=== PATIENT | male | born 1985 | race Caucasian/White ===

== ENCOUNTER 2017-08-19 15:27 | Inpatient (IN) ==
[2017-08-19] MEDS ORDERED: ONDANSETRON 4 MG/2 ML VIAL IV ONE (15:47)
[2017-08-19] MEDS ORDERED: 0.9 % SODIUM CHLORIDE 1,000 ML IV ONE ×2 (15:47→18:26)
[2017-08-19] MEDS: HYDROmorphone 2 MG/ML VIAL IV PRN ×3 (15:55→18:51)
[2017-08-19 16:39] LABS: Basophils # (Auto) 0 K/mcL (0.0-0.3); Basophils % (Auto) 0.2 % (0.0-2.0); Eosinophils # (Auto) 0.1 K/mcL (0.0-0.7); Eosinophils % (Auto) 1.6 % (0.0-7.0); Granulocytes % (Auto) 77.8 % (38.0-78.0); Lymphocytes # (Auto) 1.2 K/mcL (1.5-4.8); Lymphocytes % (Auto) 13.6 % (15.5-49.0); Mean Cell Volume 93.7 fL (80.0-100.0); Mean Corpuscular HGB Conc 34.2 g/dL (31.0-36.0); Monocytes # (Auto) 0.6 K/mcL (0.1-0.9); Monocytes % (Auto) 6.8 % (1.0-12.0); Platelet Count 236 K/mcL (140-440); RBC 4.98 M/mcL (4.50-5.90); Red Cell Distribution Width 15.2 % (11.5-14.5)
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
[2017-08-19 16:58] LABS: Appearance,Urine HAZY; Bacteria,Urine 0 /hpf (0); Bilirubin,Urine NEG (NEG); Color,Urine YELLOW; Glucose,Urine (UA) NEGATIVE (NEG); Leukocyte Esterase,Urine NEG /uL (NEG); Mucus,Urine FEW /hpf (0); Protein,Urine 30 mg/dL (NEG); Specific Gravity,Urine 1.024 (1.000-1.035); Urine Blood 0.03 mg/dL (<0.03); Urine Hyaline Cast 1 /lpf (0-2); Urine RBC 1 /hpf (0-1); Urine Squamous Epithelial Cell 0 /hpf (0-4); Urine WBC 1 /hpf (0-4); Urobilinogen,Urine NEG (NEG)
[2017-08-19 17:00] LABS: ALT/SGPT 24 U/l (0-40); Albumin 5.1 gm/dL (3.2-5.2); Albumin/Globulin Ratio 1.9 (1.0-2.3); Alkaline Phosphatase 61 U/L (39-117); Amylase 489 U/L (28-100); Blood Urea Nitrogen 9 mg/dl (6-20)
[2017-08-19 17:08] LABS: Lipase 2581 U/L (7-60)
[2017-08-19] MEDS ORDERED: guaiFENesin/CODEINE 10 ML UDC PO PRN (19:03)
[2017-08-19] MEDS ORDERED: POTASSIUM CHLORIDE 40 MEQ in DEXTROSE 5% IN WATER 500 ML IV PRN (19:03)
[2017-08-19] MEDS ORDERED: ACETAMINOPHEN 325 MG TABLET PO PRN (19:03)
[2017-08-19] MEDS ORDERED: HYDROmorphone 2 MG/ML VIAL IV PRN (19:03)
[2017-08-19] MEDS ORDERED: traZODone HCL 50 MG TABLET PO PRN (19:03)
[2017-08-19] MEDS ORDERED: ONDANSETRON 4 MG/2 ML VIAL IV PRN (19:03)
[2017-08-19] MEDS ORDERED: ACETAMINOPHEN 1,000 MG/100 ML BOTTLE IV PRN (19:03)
--- NOTE | 2017-08-19 19:57 | Internal Med History&Physical ---
Medical - H&P: [facility] Patient information: Note initiated : 08/19/17 at 7:53 pm Service Date, if different from initiated Date: [] Patient: Lion Johnson 32 y/o M admitted on 08/19/17 for abdominal pain. Chief Complaint: [] Chief complaint: Abd pain History of present illness: Mr. Johnson is a 32 year old M recent episode of acute pancreatitis secondary to alcohol 2 months ago. patient was managed as outpatient conservatively. He was advised to abstain from alcohol however he continues to drink. He today comes in with 24 hour onset of worsening 10 out of 10 epigastric pain without radiation, main worse with food along with associated nausea. He reportedly had been consuming alcohol. He is accompanied by his . Initial workup in the ER was significant for elevated lipase over 1999. Abdominal ultrasound is pending. Hospitalist service was consulted in light of acute pancreatitis. Patient's initial [place] II and [place] score was low. hospitalist service was consulted for admission. At the time of evaluation patient is in moderate discomfort. He received 3 doses of Dilaudid. He is also received 2 L of crystalloid boluses. he denies substance abuse. Denies bloody stool or change in stool caliber. He denies fevers shaking chills abdominal distention yellow discoloration of skin headache photophobia or shortness of breath. review of systems 10 point review of system was performed and is negative except for discussed about Medical - H&P: PMH Medical history: hypertension asthma Recent pancreatitis History of seizure disorder Pertinent family history: hypertension Social history: former smoker active alcohol use History of methamphetamine use Have you smoked in the last 12 months: No Drug use: other (amphetamine) Alcohol use: heavy Medical - H&P: Meds Home Medications Medication Instructions Recorded Confirmed Type Phenytoin Sod [Dilantin] 100 mg PO TID 08/19/17 08/19/17 History Allergies Allergy/AdvReac Type Severity Reaction Status Date / Time NO KNOWN ALLERGIES Allergy Unknown NONE Uncoded 10/15/14 16:17 Medical - H&P: Exam - Constitutional Vitals: Temp Pulse Resp BP Pulse Ox 98.1 F 107 H 20 178/119 98 08/19/17 19:01 08/19/17 19:01 08/19/17 19:01 08/19/17 19:01 04/08/18 19:01 General appearance: average body habitus, moderate distress (abdominal pain) Exam: pupils symmetric oral cavity dry No eardischarge Head normocephalic Neck no lymphadenopathy S1 and S2 tachycardia Chest clear to auscultation Abdomen minimally distended, epigastric tenderness Lower extremity no cyanosis clubbing No joint swelling or erythema Skin no suspicious lesion Psych anxious but cooperative Neuro nonfocal Medical - H&P: Reslt - Labs CBC & Chem 7: 08/20/17 04:20 08/20/17 04:20 Labs: Short CBC 08/19/17 Range/Units 15:58 WBC 9.0 (4.5-11.0) K/mcL Hgb 16.0 (13.5-16.5) g/dL Hct 46.7 (41.0-55.0) % Plt Count 236 (140-440) K/mcL BMP 08/19/17 15:58 Sodium 139 Potassium 3.7 Chloride 94 L Carbon Dioxide 20 L BUN 9 Creatinine 0.7 Glucose 76 Calcium 9.5 Liver Function 08/19/17 Range/Units 15:58 Total Bilirubin 0.5 (0.0-1.0) mg/dL AST 37 (0-37) U/l ALT 24 (0-40) U/l Alkaline Phosphatase 61 (39-117) U/L Albumin 5.1 (3.2-5.2) gm/dL Urine 08/19/17 Range/Units 15:57 Urine Color Yellow Urine Appearance Hazy Urine pH 5.0 (5.0-9.0) Ur Specific [place] 1.024 (1.000-1.035) Urine Protein 30 A (NEG) mg/dL Urine Glucose (UA) Negative (NEG) mg/dL Medical - H&P: A/P (1) Acute alcoholic pancreatitis Current visit: Yes Status: Acute * Acute alcoholic pancreatitis-low [place] and [place] score on admit. Continue daily CRP trending. Continue conservative management with crystalloids and antiemetics/analgesics. Keep nothing by mouth/bowel rest * Abdominal pain managed on as needed opioids * Hypertension continue as needed hydralazine * History of seizure disorder continue IV phenytoin. Check phenytoin level * Full code plan * Conservative management as above * Phenytoin level * Pre-existing medical condition management as above Medical - H&P: Qual - VTE Deep Vein Thrombosis/Pulmonary Embolism Present on Admission: No
--- NOTE | 2017-08-19 20:02 | Ultrasound Report ---
CLINICAL INFORMATION: Upper abdominal pain COMPARISON: None. FINDINGS: Gallbladder and bile ducts are normal: CBD is 5 mm. The liver and pancreas are normal in size and echotexture. No free fluid IMPRESSION: Normal gallbladder, bile ducts, liver and pancreas Interpreted and Authenticated by: Seb Hopkins 08/19/17
[2017-08-19] MEDS ORDERED: PHENYTOIN SOD 100 MG/2 ML VIAL IV ONE (20:04)
[2017-08-19] MEDS: 0.9 % SODIUM CHLORIDE 1,000 ML IV SCH ×2 (20:10→20:11)
[2017-08-19] MEDS: SENNOSIDES/DOCUSATE SODIUM 1 TAB TABLET PO SCH (20:53)
[2017-08-19] MEDS: DOCUSATE SODIUM 100 MG CAPSULE PO SCH (20:53)
[2017-08-19] MEDS: 0.9 % SODIUM CHLORIDE 10 ML SYRINGE IV SCH (20:54)
[2017-08-19] MEDS ORDERED: SODIUM CHLORIDE 0.9% IV ONE (21:00)
[2017-08-19] MEDS ORDERED: FOSPHENYTOIN IV ONE (21:00)
[2017-08-19] MEDS: HEPARIN 5,000 UNIT/ML VIAL SQ SCH (21:18)
[2017-08-20] MEDS ORDERED: HYDROmorphone 2 MG/ML VIAL ONE ×3 (01:03→05:19)
[2017-08-20] MEDS: HYDROmorphone 2 MG/ML VIAL IV PRN ×10 (01:11→22:23)
[2017-08-20] MEDS: 0.9 % SODIUM CHLORIDE 1,000 ML IV SCH ×6 (01:30→22:27)
[2017-08-20] MEDS: 0.9 % SODIUM CHLORIDE 10 ML SYRINGE IV SCH ×3 (04:44→21:15)
[2017-08-20 05:44] LABS: Mean Cell Volume 93.9 fL (80.0-100.0); Mean Corpuscular HGB Conc 34.7 g/dL (31.0-36.0); Mean Corpuscular Hemoglobin 32.6 pg (26.0-34.0); Platelet Count 174 K/mcL (140-440); RBC 4.06 M/mcL (4.50-5.90); Red Cell Distribution Width 15.3 % (11.5-14.5)
[2017-08-20 06:26] LABS: ALT/SGPT 16 U/l (0-40); Albumin 3.8 gm/dL (3.2-5.2); Albumin/Globulin Ratio 1.7 (1.0-2.3); Alkaline Phosphatase 48 U/L (39-117); Bilirubin,Direct < 0.2 mg/dL (0.0-0.3); Blood Urea Nitrogen 6 mg/dl (6-20); C-Reactive Protein 1.9 mg/dl (0.0-0.8); Gamma Glutamyl Transpeptidase 158 U/L (8-61); Uric Acid 8.6 mg/dL (2.5-8.0)
[2017-08-20 06:33] LABS: Anisocytosis 1+ (NONE SEEN); Band Neutrophils % 9 % (0-10); Basophils % (Manual) 1 % (0-2); Eosinophils % (Manual) 1 % (0-7); Lymphocytes % 21 % (15-49); Monocytes % (Manual) 7 % (1-12); Platelet Estimate NORMAL (NORMAL); RBC Morphology ABNORMAL (NORMAL); Segmented Neutrophils % 57 % (38-78)
[2017-08-20] MEDS: PHENYTOIN SOD 100 MG/2 ML VIAL IV SCH ×3 (07:47→22:24)
[2017-08-20] MEDS: MAGNESIUM SULFATE 2 GM/50 ML BAG IV PRN (07:47)
[2017-08-20] MEDS: HEPARIN 5,000 UNIT/ML VIAL SQ SCH ×2 (09:05→21:14)
[2017-08-20] MEDS: MULTIVIT,THER IRON,CA,FA & MIN 1 TABLET PO SCH ×2 (09:05→10:22)
[2017-08-20] MEDS: THIAMINE 100 MG in 0.9 % SODIUM CHLORIDE 50 ML IV SCH (09:41)
[2017-08-20] MEDS: DOCUSATE SODIUM 100 MG CAPSULE PO SCH ×2 (10:17→21:15)
--- NOTE | 2017-08-20 10:42 | Internal Med Progress Note ---
Medical - PN: Subj Patient information: Note initiated : 08/20/17 at 10:40 am Service Date, if different from initiated Date: [] Patient: Lion Johnson 32 y/o M admitted on 08/19/17 for abdominal pain. Chief Complaint: [] Interval history: Mr. Johnson is a 32 year old M recent episode of acute pancreatitis secondary to alcohol 2 months ago. patient was managed as an outpatient conservatively. He was advised to abstain from alcohol however he continues to drink. He today comes in with 24 hour onset of worsening 10 out of 10 epigastric pain without radiation, main worse with food along with associated nausea. He reportedly had been consuming alcohol. He is affected with his . Initial workup in the ER was significant for elevated lipase over 1999. Abdominal ultrasound is pending. Hospitalist service was consulted in light of acute pancreatitis. Patient's initial [place] II and [place] score was low. hospitalist service was consulted for admission. At the time of evaluation patient is in moderate discomfort. He received 3 doses of Dilaudid. He is also received 2 L of crystalloid boluses. he denies substance abuse. Denies bloody stool or change in stool caliber. He denies fevers shaking chills abdominal distention yellow discoloration of skin headache photophobia or shortness of breath. 08/20-patient doing better. No overnight events except for persistent abdominal pain requiring IV opioids. On bowel rest with nothing by mouth. No concerns per staff. No fever chills nausea vomiting. continue crystalloids. - Constitutional Vitals: Vital Signs Temp Pulse Resp BP Pulse Ox 98.2 F 70 16 164/113 96 08/20/17 06:28 08/20/17 03:55 08/20/17 06:28 08/20/17 06:28 08/20/17 06:28 Period Temp Pulse Resp BP Sys/Hess Pulse Ox Last 24 Hr 97.4 F-98.2 F 67-107 16-20 152-178/87-123 94-100 Intake and Output 08/19/17 08/20/17 08/20/17 21:59 05:59 13:59 Intake Total 1000 / 1000 1000 / 1000 1000 / 1000 Output Total 950 / 950 350 / 350 Balance 1000 / 1000 50 / 50 650 / 650 Weight 185 lb 8 oz Intake & Output: Intake & Output 08/19/17 08/20/17 08/20/17 21:59 05:59 13:59 Intake Total 1000 / 1000 1000 / 1000 1000 / 1000 Output Total 950 / 950 350 / 350 Balance 1000 / 1000 50 / 50 650 / 650 Weight 185 lb 8 oz Intake: IV 1000 / 1000 1000 / 1000 1000 / 1000 Sodium Chloride 0.9% 1,000 ml @ 1000 / 1000 1000 / 1000 1000 / 1000 200 mls/hr IV .Q5H [facility] Rx#: [id number] Oral 0 / 0 Output: Void Amount 950 / 950 350 / 350 General appearance: cooperative, no acute distress Exam: Minimal anxiety nonlabored breathing Nondistended abdomen no pallor Medical - PN: Obj Da - Labs CBC & Chem 7: 08/20/17 04:20 08/20/17 04:20 Labs: Abnormal Lab Results 08/20/17 08/20/17 08/19/17 04:20 04:20 15:58 WBC 4.2 L RBC 4.06 L Hgb 13.2 L Hct 38.1 L RDW 15.3 H MPV 7.0 L Lymph % (Auto) Lymph # (Auto) Reactive Lymphocytes 4 H Anisocytosis 1+ A Chloride 94 L Carbon Dioxide 21 L 20 L Anion Gap 20.0 H 25.0 H Glucose 65 L Uric Acid 8.6 H Calcium 8.4 L Magnesium 1.5 L GGT 158 H C-Reactive Protein 1.9 H Triglycerides 202 H Amylase 489 H Lipase 2581 H Urine Protein Urine Ketones Urine Occult Blood 08/19/17 08/19/17 15:58 15:57 WBC RBC Hgb Hct RDW 15.2 H MPV 6.8 L Lymph % (Auto) 13.6 L Lymph # (Auto) 1.2 L Reactive Lymphocytes Anisocytosis Chloride Carbon Dioxide Anion Gap Glucose Uric Acid Calcium Magnesium GGT C-Reactive Protein Triglycerides Amylase Lipase Urine Protein 30 A Urine Ketones 20 A Urine Occult Blood 0.03 A Meds: Medications Acetaminophen (Tylenol) 650 mg PO Q4-6HP PRN PRN Reason: PAIN/FEVER > 101 Docusate Sodium (Colace) 100 mg PO BID [facility] Last Admin: 08/20/17 10:17 Dose: Not Given Guaifenesin/Codeine Phosphate (Robitussin Ac) 10 ml PO Q4HP PRN PRN Reason: Cough Heparin Sodium (Porcine) (Heparin) 5,000 unit SQ Q12 [facility] Last Admin: 08/20/17 09:05 Dose: 5,000 unit Hydralazine HCl (Apresoline) 0 mg IV Q4-6HP PRN PRN Reason: Hypertension Hydromorphone HCl (Dilaudid) 0.5 mg IV Q2HP PRN PRN Reason: PAIN LEVEL > 6 Last Admin: 08/20/17 09:41 Dose: 0.5 mg Potassium Chloride 40 meq/ (Dextrose) 520 mls @ 130 mls/hr IV UD PRN PRN Reason: K+ = or < 3.5 Magnesium Sulfate (Magnesium Sulfate) 2 gm in 50 mls @ 50 mls/hr IV UD PRN PRN Reason: MG = or < 1.7 Last Admin: 08/20/17 07:47 Dose: 50 mls/hr Sodium Chloride (Sodium Chloride 0.9%) 1,000 mls @ 0 mls/hr IV BOLUS REECE PRN Reason: Wide Open Last Admin: 08/19/17 20:11 Dose: Not Given Sodium Chloride (Sodium Chloride 0.9%) 1,000 mls @ 200 mls/hr IV .Q5H [facility] Last Admin: 08/20/17 09:41 Dose: 200 mls/hr Acetaminophen (Ofirmev) 1,000 mg in 100 mls @ 200 mls/hr IV Q6HP PRN PRN Reason: PAIN/FEVER > 101 Thiamine HCl 100 mg/ Sodium (Chloride) 51 mls @ 50 mls/hr IV DAILY [facility] Stop: 08/22/17 10:02 Last Admin: 08/20/17 09:41 Dose: 50 mls/hr Iron Carb/Multivit/[place]/Folic Acid (Multivitamin W/Minerals) 1 tab PO DAILY [facility] Last Admin: 08/20/17 10:22 Dose: Not Given Ondansetron HCl (Zofran) 4 mg IV Q4-6HP PRN PRN Reason: Nausea And Vomiting Phenytoin Sodium (Dilantin) 100 mg IV Q8 [facility] Last Admin: 08/20/17 07:47 Dose: 100 mg Senna/Docusate Sodium (Senna Plus Tablet) 1 tab PO HS [facility] Last Admin: 08/19/17 20:53 Dose: Not Given Sodium Chloride (Saline Flush) 10 ml IV Q8 [facility] Last Admin: 08/20/17 04:44 Dose: Not Given Medical - PN: A/P - Time Spent With Patient Total time spent is greater than 50% in coordination of care (as documented) at patient's floor/unit and/or counseling patient: 15 - 24 minutes (1) Acute alcoholic pancreatitis Status: Acute Assessment and plan: * Acute alcoholic pancreatitis-llipase over 1999. Persistent abdominal pain however improved since previous day. CRP uptrending.. Continue crystalloids and antiemetics/analgesics. Keep nothing by mouth/bowel rest * Abdominal pain managed on as needed opioids * Hypertension continue as needed hydralazine to keep systolic below 150 * History of seizure disorder continue IV phenytoin . Phenytoin level 3.4 * Full code plan * continue conservative management as above * IV phenytoin * Pre-existing medical condition management as above Current Visit: Yes Medical - PN: Qual - VTE Deep Vein Thrombosis/Pulmonary Embolism Present on Admission: No
[2017-08-20] MEDS: SENNOSIDES/DOCUSATE SODIUM 1 TAB TABLET PO SCH (21:15)
[2017-08-21] MEDS: HYDROmorphone 2 MG/ML VIAL IV PRN ×10 (00:34→23:46)
[2017-08-21] MEDS: PHENYTOIN SOD 100 MG/2 ML VIAL IV SCH ×2 (06:09→14:50)
[2017-08-21] MEDS: 0.9 % SODIUM CHLORIDE 10 ML SYRINGE IV SCH ×3 (06:09→22:16)
[2017-08-21 06:49] LABS: Mean Cell Volume 94.8 fL (80.0-100.0); Mean Corpuscular HGB Conc 34.3 g/dL (31.0-36.0); Mean Corpuscular Hemoglobin 32.5 pg (26.0-34.0); Platelet Count 170 K/mcL (140-440); RBC 4.23 M/mcL (4.50-5.90)
[2017-08-21 07:29] LABS: ALT/SGPT 15 U/l (0-40); Albumin 4.2 gm/dL (3.2-5.2); Albumin/Globulin Ratio 1.6 (1.0-2.3); Alkaline Phosphatase 50 U/L (39-117); Bilirubin,Direct < 0.2 mg/dL (0.0-0.3); Blood Urea Nitrogen 3 mg/dl (6-20); Gamma Glutamyl Transpeptidase 168 U/L (8-61); Uric Acid 8.9 mg/dL (2.5-8.0)
[2017-08-21 08:26] LABS: Band Neutrophils % 3 % (0-10); Eosinophils % (Manual) 4 % (0-7); Lymphocytes % 25 % (15-49); Monocytes % (Manual) 6 % (1-12); Platelet Estimate NORMAL (NORMAL); RBC Morphology NORMAL (NORMAL); Segmented Neutrophils % 62 % (38-78)
[2017-08-21] MEDS: MULTIVIT,THER IRON,CA,FA & MIN 1 TABLET PO SCH (08:54)
[2017-08-21] MEDS: DOCUSATE SODIUM 100 MG CAPSULE PO SCH ×2 (08:54→21:24)
[2017-08-21] MEDS: THIAMINE 100 MG in 0.9 % SODIUM CHLORIDE 50 ML IV SCH (08:58)
[2017-08-21] MEDS: HEPARIN 5,000 UNIT/ML VIAL SQ SCH ×2 (08:58→21:24)
[2017-08-21] MEDS: 0.9 % SODIUM CHLORIDE 1,000 ML IV SCH (12:55)
--- NOTE | 2017-08-21 14:09 | Internal Med Progress Note ---
Medical - PN: Subj Patient information: Note initiated : 08/21/17 at 2:05 pm Service Date, if different from initiated Date: [] Patient: Lion Johnson 32 y/o M admitted on 08/19/17 for Abdominal Pain/ Alcoholic Pancreatitis. Chief Complaint: [] Interval history: Mr. Johnson is a 32 year old M recent episode of acute pancreatitis secondary to alcohol 2 months ago. patient was managed as an outpatient conservatively. He was advised to abstain from alcohol however he continues to drink. He today comes in with 24 hour onset of worsening 10 out of 10 epigastric pain without radiation, main worse with food along with associated nausea. He reportedly had been consuming alcohol. He is affected with his . Initial workup in the ER was significant for elevated lipase over 1999. Abdominal ultrasound is pending. Hospitalist service was consulted in light of acute pancreatitis. Patient's initial Kirby II and Elba score was low. hospitalist service was consulted for admission. At the time of evaluation patient is in moderate discomfort. He received 3 doses of Dilaudid. He is also received 2 L of crystalloid boluses. he denies substance abuse. Denies bloody stool or change in stool caliber. He denies fevers shaking chills abdominal distention yellow discoloration of skin headache photophobia or shortness of breath. 08/20-patient doing better. No overnight events except for persistent abdominal pain requiring IV opioids. On bowel rest with nothing by mouth. No concerns per staff. No fever chills nausea vomiting. continue crystalloids. 08/21-abdominal pain remarkably improved. No overnight events. Intermittently required in low-dose opioids. Start clears and jellos. CRP elevated at 10. Continue trending. CT abdomen pending. Clinically improving. No overnight fever or chills or unstable hemodynamics - Constitutional Vitals: Vital Signs Temp Pulse Resp BP Pulse Ox 97.4 F 71 20 140/85 95 08/21/17 12:00 08/21/17 12:00 08/21/17 12:00 08/21/17 12:00 08/21/17 12:00 Period Temp Pulse Resp BP Sys/Hess Pulse Ox Last 24 Hr 96.9 F-98.1 F 62-71 16-22 140-169/85-123 95-98 Intake and Output 08/21/17 08/21/1718 05:59 13:59 21:59 Intake Total 0 / 0 1000 / 1000 Output Total 950 / 950 300 / 300 Balance -950 / -950 700 / 700 Intake & Output: Intake & Output 08/21/17 08/21/17 08/21/17 05:59 13:59 21:59 Intake Total 0 / 0 1000 / 1000 Output Total 950 / 950 300 / 300 Balance -950 / -950 700 / 700 Intake: IV 1000 / 1000 Sodium Chloride 0.9% 1,000 ml @ 1000 / 1000 75 mls/hr IV .[id number] [facility] Rx#: [id number] Oral 0 / 0 Output: Void Amount 950 / 950 300 / 300 Other: # Voids 1 General appearance: cooperative, no acute distress Exam: alert oriented nonlabored breathing Nondistended abdomen Medical - PN: Obj Da - Labs CBC & Chem 7: 08/21/17 05:08 08/21/17 05:08 Labs: Abnormal Lab Results 08/21/17 08/21/17 08/20/17 05:08 05:08 04:20 WBC 3.9 L RBC 4.23 L Hgb Hct 40.1 L RDW 15.0 H MPV 7.1 L Lymph % (Auto) Lymph # (Auto) Reactive Lymphocytes Anisocytosis Chloride Carbon Dioxide 21 L Anion Gap 22.0 H 20.0 H BUN 3 L Glucose 65 L Uric Acid 8.9 H 8.6 H Calcium 8.4 L Magnesium 1.5 L GGT 168 H 158 H C-Reactive Protein 10.0 H 1.9 H Triglycerides 210 H 202 H Amylase Lipase Urine Protein Urine Ketones Urine Occult Blood 08/20/17 08/19/17 08/19/17 04:20 15:58 15:58 WBC 4.2 L RBC 4.06 L Hgb 13.2 L Hct 38.1 L RDW 15.3 H 15.2 H MPV 7.0 L 6.8 L Lymph % (Auto) 13.6 L Lymph # (Auto) 1.2 L Reactive Lymphocytes 4 H Anisocytosis 1+ A Chloride 94 L Carbon Dioxide 20 L Anion Gap 25.0 H BUN Glucose Uric Acid Calcium Magnesium GGT C-Reactive Protein Triglycerides Amylase 489 H Lipase 2581 H Urine Protein Urine Ketones Urine Occult Blood 08/19/17 15:57 WBC RBC Hgb Hct RDW MPV Lymph % (Auto) Lymph # (Auto) Reactive Lymphocytes Anisocytosis Chloride Carbon Dioxide Anion Gap BUN Glucose Uric Acid Calcium Magnesium GGT C-Reactive Protein Triglycerides Amylase Lipase Urine Protein 30 A Urine Ketones 20 A Urine Occult Blood 0.03 A Meds: Medications Acetaminophen (Tylenol) 650 mg PO Q4-6HP PRN PRN Reason: PAIN/FEVER > 101 Docusate Sodium (Colace) 100 mg PO BID [facility] Last Admin: 08/21/17 08:54 Dose: Not Given Guaifenesin/Codeine Phosphate (Robitussin Ac) 10 ml PO Q4HP PRN PRN Reason: Cough Heparin Sodium (Porcine) (Heparin) 5,000 unit SQ Q12 [facility] Last Admin: 08/21/17 08:58 Dose: 5,000 unit Hydralazine HCl (Apresoline) 0 mg IV Q4-6HP PRN PRN Reason: Hypertension Hydromorphone HCl (Dilaudid) 0.5 mg IV Q2HP PRN PRN Reason: PAIN LEVEL > 6 Last Admin: 08/21/17 11:34 Dose: 0.5 mg Potassium Chloride 40 meq/ (Dextrose) 520 mls @ 130 mls/hr IV UD PRN PRN Reason: K+ = or < 3.5 Magnesium Sulfate (Magnesium Sulfate) 2 gm in 50 mls @ 50 mls/hr IV UD PRN PRN Reason: MG = or < 1.7 Last Infusion: 08/20/17 08:50 Dose: Infused Acetaminophen (Ofirmev) 1,000 mg in 100 mls @ 200 mls/hr IV Q6HP PRN PRN Reason: PAIN/FEVER > 101 Thiamine HCl 100 mg/ Sodium (Chloride) 51 mls @ 50 mls/hr IV DAILY [facility] Stop: 08/22/17 10:02 Last Admin: 08/21/17 08:58 Dose: 50 mls/hr Sodium Chloride (Sodium Chloride 0.9%) 1,000 mls @ 75 mls/hr IV .[id number] [facility] Last Admin: 08/21/17 12:55 Dose: 75 mls/hr Iron Carb/Multivit/[place]/Folic Acid (Multivitamin W/Minerals) 1 tab PO DAILY [facility] Last Admin: 08/21/17 08:54 Dose: Not Given Ondansetron HCl (Zofran) 4 mg IV Q4-6HP PRN PRN Reason: Nausea And Vomiting Phenytoin Sodium (Dilantin) 100 mg IV Q8 [facility] Last Admin: 08/21/17 06:09 Dose: 100 mg Senna/Docusate Sodium (Senna Plus Tablet) 1 tab PO HS [facility] Last Admin: 08/20/17 21:15 Dose: Not Given Sodium Chloride (Saline Flush) 10 ml IV Q8 [facility] Last Admin: 08/21/17 06:09 Dose: 10 ml Medical - PN: A/P - Time Spent With Patient Total time spent is greater than 50% in coordination of care (as documented) at patient's floor/unit and/or counseling patient: 15 - 24 minutes (1) Acute alcoholic pancreatitis Status: Acute Assessment and plan: * Acute alcoholic pancreatitis-clinically improving. Continue trend CRP. Continue crystalloids and antiemetics/analgesics. start clears * Abdominal pain managed on as needed opioids * Hypertension continue as needed hydralazine to keep systolic below 150 * History of seizure disorder-Switch to oral phenytoin * Full code plan * continue conservative management as above, * start clears * CT abdomen * start oral phenytoin * Pre-existing medical condition management as above Current Visit: Yes Medical - PN: Qual - VTE Deep Vein Thrombosis/Pulmonary Embolism Present on Admission: No
[2017-08-21] MEDS: PHENYTOIN SOD 100 MG CAPSULE PO SCH ×2 (14:32→21:24)
[2017-08-21] MEDS ORDERED: IOPAMIDOL 100 ML BOTTLE IV ONE (14:56)
--- NOTE | 2017-08-21 16:05 | Cat Scan Report ---
CLINICAL INFORMATION: Reason for Exam:acute pancreatitis, r/o pseudocyst,hemorrhage COMPARISON: None. TECHNIQUE: Following injection of intravenous contrast the patient was scanned during the portal venous phase from the diaphragm through the symphysis pubis. Sagittal and coronal reformats were created.. FINDINGS: Small hiatus hernia is present. Mild fatty infiltration is present throughout the liver. Liver is normal in size and there is no mass. The gallbladder and bile ducts are normal. Within the head of the pancreas the parenchyma is somewhat heterogeneous and there are several small macrocalcifications. Pancreatic head does not appear to be abnormally enlarged. The neck, body and tail of the pancreas are normal. There is no pseudocyst or hemorrhage in or adjacent to the pancreas. The duct is nondilated. The spleen is normal in size and homogeneous. The adrenals and kidneys are normal. The bowel gas pattern is normal. The appendix is noninflamed. Trace amount of ascites is present deep in the pelvis. Is no evidence of an abscess or adenopathy in the abdomen or pelvis. Urinary bladder is decompressed. Scheuermann's disease is present in the lower thoracic spine with loss in height of several vertebra, disc space narrowing and multiple Schmorl's nodes. IMPRESSION: Calcifications and heterogeneous parenchyma in the head of the pancreas. This may be a combination of acute and chronic pancreatitis. Trace amount of ascites which is probably related to pancreatitis. Scheuermann's disease in the thoracic spine Interpreted and Authenticated by: Bari Means 08/21/17
[2017-08-21] MEDS: SENNOSIDES/DOCUSATE SODIUM 1 TAB TABLET PO SCH (21:24)
[2017-08-21] MEDS ORDERED: traZODone HCL 50 MG TABLET PO PRN (22:18)
[2017-08-21] MEDS: hydrALAZINE 20 MG/ML VIAL IV PRN (23:47)
[2017-08-22] MEDS ORDERED: traZODone HCL 50 MG TABLET ONE (00:54)
[2017-08-22] MEDS: 0.9 % SODIUM CHLORIDE 1,000 ML IV SCH ×2 (00:57→11:37)
[2017-08-22] MEDS: HYDROmorphone 2 MG/ML VIAL IV PRN ×9 (04:12→22:31)
[2017-08-22] MEDS: 0.9 % SODIUM CHLORIDE 10 ML SYRINGE IV SCH ×3 (04:38→20:46)
[2017-08-22 06:55] LABS: Mean Cell Volume 94.6 fL (80.0-100.0); Mean Corpuscular HGB Conc 34.6 g/dL (31.0-36.0); Mean Corpuscular Hemoglobin 32.7 pg (26.0-34.0); Platelet Count 172 K/mcL (140-440); RBC 4.33 M/mcL (4.50-5.90); Red Cell Distribution Width 14.6 % (11.5-14.5)
[2017-08-22] MEDS: PHENYTOIN SOD 100 MG CAPSULE PO SCH ×3 (07:27→22:13)
[2017-08-22 07:28] LABS: ALT/SGPT 11 U/l (0-40); Albumin 4.3 gm/dL (3.2-5.2); Albumin/Globulin Ratio 1.7 (1.0-2.3); Alkaline Phosphatase 47 U/L (39-117); Bilirubin,Direct < 0.2 mg/dL (0.0-0.3); Blood Urea Nitrogen 4 mg/dl (6-20); C-Reactive Protein 8.2 mg/dl (0.0-0.8); Gamma Glutamyl Transpeptidase 174 U/L (8-61); Uric Acid 9.4 mg/dL (2.5-8.0)
[2017-08-22] MEDS: DOCUSATE SODIUM 100 MG CAPSULE PO SCH ×2 (08:58→20:43)
[2017-08-22 09:00] LABS: Band Neutrophils % 10 % (0-10); Eosinophils % (Manual) 4 % (0-7); Lymphocytes % 21 % (15-49); Monocytes % (Manual) 8 % (1-12); Platelet Estimate NORMAL (NORMAL); RBC Morphology NORMAL (NORMAL); Segmented Neutrophils % 56 % (38-78)
[2017-08-22] MEDS: MULTIVIT,THER IRON,CA,FA & MIN 1 TABLET PO SCH (09:18)
[2017-08-22] MEDS: MAGNESIUM SULFATE 2 GM/50 ML BAG IV PRN (09:18)
[2017-08-22] MEDS: HEPARIN 5,000 UNIT/ML VIAL SQ SCH ×2 (09:18→20:43)
[2017-08-22] MEDS: THIAMINE 100 MG in 0.9 % SODIUM CHLORIDE 50 ML IV SCH (10:33)
--- NOTE | 2017-08-22 13:19 | Internal Med Progress Note ---
Medical - PN: Subj Patient information: Note initiated : 08/22/17 at 1:09 pm Service Date, if different from initiated Date: [] Patient: Lion Johnson a 32 y/o M admitted on 08/19/17 for Abdominal Pain/ Alcoholic Pancreatitis. Chief Complaint: [] Interval history: Mr. Johnson is a 32 year old M recent episode of acute pancreatitis secondary to alcohol 2 months ago. patient was managed as an outpatient conservatively. He was advised to abstain from alcohol however he continues to drink. He today comes in with 24 hour onset of worsening 10 out of 10 epigastric pain without radiation, main worse with food along with associated nausea. He reportedly had been consuming alcohol. He is affected with his . Initial workup in the ER was significant for elevated lipase over 1999. Abdominal ultrasound is pending. Hospitalist service was consulted in light of acute pancreatitis. Patient's initial Bristol II and Elba score was low. hospitalist service was consulted for admission. At the time of evaluation patient is in moderate discomfort. He received 3 doses of Dilaudid. He is also received 2 L of crystalloid boluses. he denies substance abuse. Denies bloody stool or change in stool caliber. He denies fevers shaking chills abdominal distention yellow discoloration of skin headache photophobia or shortness of breath. 08/20-patient doing better. No overnight events except for persistent abdominal pain requiring IV opioids. On bowel rest with nothing by mouth. No concerns per staff. No fever chills nausea vomiting. continue crystalloids. 08/21-abdominal pain remarkably improved. No overnight events. Intermittently required in low-dose opioids. Start clears and jellos. CRP elevated at 10. Continue trending. CT abdomen pending. Clinically improving. No overnight fever or chills or unstable hemodynamics August 22-downtrending CRP however patient continues to experience abdominal pain. On sips and chips. CT abdomen shows calcification with signs of acute and chronic pancreatitis. No pseudocyst or hemorrhage. Attempting clears once abdominal pain improved. Counseling for alcohol cessation ongoing. Continue conservative management. Anticipate discharge in 48 hours once clinically improved. - Constitutional Vitals: Vital Signs Temp Pulse Resp BP Pulse Ox 98.2 F 62 14 143/93 92 08/22/17 07:13 08/22/17 07:13 08/22/17 07:13 08/22/17 07:13 08/22/17 07:13 Period Temp Pulse Resp BP Sys/Hess Pulse Ox Last 24 Hr 97.4 F-98.8 F 62-92 14-20 143-185/89-129 92-99 Intake and Output 08/21/17 08/22/17 08/22/17 21:59 05:59 13:59 Intake Total 100 / 100 1133 / 1133 Output Total 700 / 700 200 / 200 500 / 500 Balance -600 / -600 933 / 933 -500 / -500 Weight 180 lb Intake & Output: Intake & Output 08/21/17 08/22/17 08/22/17 21:59 05:59 13:59 Intake Total 100 / 100 1133 / 1133 Output Total 700 / 700 200 / 200 500 / 500 Balance -600 / -600 933 / 933 -500 / -500 Weight 180 lb Intake: IV 953 / 953 Sodium Chloride 0.9% 1,000 ml @ 902 / 902 75 mls/hr IV .[id number] [facility] Rx#: [id number] Vitamin B1 100 mg In Sodium 51 / 51 Chloride 0.9% 50 ml @ 50 mls/hr IV DAILY [facility] Rx#:[id number] Oral 100 / 100 180 / 180 Output: Void Amount 700 / 700 200 / 200 500 / 500 Other: Meal Jello cup Percent of Meal Consumed 50% Feeding Ability Independent Medical - PN: Obj Da - Labs CBC & Chem 7: 08/22/17 04:56 08/22/17 04:56 Labs: Abnormal Lab Results 08/22/17 08/22/17 08/21/17 04:56 04:56 05:08 WBC RBC 4.33 L Hgb Hct 40.9 L RDW 14.6 H MPV 7.3 L Lymph % (Auto) Lymph # (Auto) Reactive Lymphocytes Anisocytosis Chloride Carbon Dioxide 20 L Anion Gap 22.0 H 22.0 H BUN 4 L 3 L Glucose Uric Acid 9.4 H 8.9 H Calcium Magnesium GGT 174 H 168 H C-Reactive Protein 8.2 H 10.0 H Triglycerides 165 H 210 H Amylase Lipase Urine Protein Urine Ketones Urine Occult Blood 08/21/17 08/20/17 08/20/17 05:08 04:20 04:20 WBC 3.9 L 4.2 L RBC 4.23 L 4.06 L Hgb 13.2 L Hct 40.1 L 38.1 L RDW 15.0 H 15.3 H MPV 7.1 L 7.0 L Lymph % (Auto) Lymph # (Auto) Reactive Lymphocytes 4 H Anisocytosis 1+ A Chloride Carbon Dioxide 21 L Anion Gap 20.0 H BUN Glucose 65 L Uric Acid 8.6 H Calcium 8.4 L Magnesium 1.5 L GGT 158 H C-Reactive Protein 1.9 H Triglycerides 202 H Amylase Lipase Urine Protein Urine Ketones Urine Occult Blood 08/19/17 08/19/17 08/19/17 15:58 15:58 15:57 WBC RBC Hgb Hct RDW 15.2 H MPV 6.8 L Lymph % (Auto) 13.6 L Lymph # (Auto) 1.2 L Reactive Lymphocytes Anisocytosis Chloride 94 L Carbon Dioxide 20 L Anion Gap 25.0 H BUN Glucose Uric Acid Calcium Magnesium GGT C-Reactive Protein Triglycerides Amylase 489 H Lipase 2581 H Urine Protein 30 A Urine Ketones 20 A Urine Occult Blood 0.03 A Meds: Medications Acetaminophen (Tylenol) 650 mg PO Q4-6HP PRN PRN Reason: PAIN/FEVER > 101 Docusate Sodium (Colace) 100 mg PO BID [facility] Last Admin: 08/22/17 08:58 Dose: Not Given Guaifenesin/Codeine Phosphate (Robitussin Ac) 10 ml PO Q4HP PRN PRN Reason: Cough Heparin Sodium (Porcine) (Heparin) 5,000 unit SQ Q12 [facility] Last Admin: 08/22/17 09:18 Dose: 5,000 unit Hydralazine HCl (Apresoline) 0 mg IV Q4-6HP PRN PRN Reason: Hypertension Last Admin: 08/21/17 23:47 Dose: 10 mg Hydromorphone HCl (Dilaudid) 0.5 mg IV Q2HP PRN PRN Reason: PAIN LEVEL > 6 Last Admin: 08/22/17 11:32 Dose: 0.5 mg Potassium Chloride 40 meq/ (Dextrose) 520 mls @ 130 mls/hr IV UD PRN PRN Reason: K+ = or < 3.5 Magnesium Sulfate (Magnesium Sulfate) 2 gm in 50 mls @ 50 mls/hr IV UD PRN PRN Reason: MG = or < 1.7 Last Admin: 08/22/17 09:18 Dose: 50 mls/hr Acetaminophen (Ofirmev) 1,000 mg in 100 mls @ 200 mls/hr IV Q6HP PRN PRN Reason: PAIN/FEVER > 101 Sodium Chloride (Sodium Chloride 0.9%) 1,000 mls @ 75 mls/hr IV .[id number] [facility] Last Admin: 08/22/17 11:37 Dose: Not Given Iron Carb/Multivit/[place]/Folic Acid (Multivitamin W/Minerals) 1 tab PO DAILY [facility] Last Admin: 08/22/17 09:18 Dose: 1 tab Ondansetron HCl (Zofran) 4 mg IV Q4-6HP PRN PRN Reason: Nausea And Vomiting Phenytoin Sodium (Dilantin) 100 mg PO TID [facility] Last Admin: 08/22/17 07:27 Dose: 100 mg Senna/Docusate Sodium (Senna Plus Tablet) 1 tab PO HS [facility] Last Admin: 08/21/17 21:24 Dose: 1 tab Sodium Chloride (Saline Flush) 10 ml IV Q8 [facility] Last Admin: 08/22/17 04:38 Dose: Not Given Trazodone HCl (Desyrel) 50 mg PO HSP PRN PRN Reason: Insomnia Last Admin: 08/22/17 00:56 Dose: 50 mg Medical - PN: A/P - Time Spent With Patient Total time spent is greater than 50% in coordination of care (as documented) at patient's floor/unit and/or counseling patient: 15 - 24 minutes (1) Acute alcoholic pancreatitis Status: Acute Assessment and plan: * Acute alcoholic pancreatitis-clinically improving. CRP downtrending. Continue crystalloids and antiemetics/analgesics. continue clears and advance as tolerated * Abdominal pain continue as needed opioids * Hypertension continue as needed hydralazine to keep systolic below 150.start ENRIQUE inhibitor * History of seizure disorder-continue oral phenytoin * Full code plan * continue conservative management as above * continue care as * Add ENRIQUE inhibitor * Pre-existing medical condition management as above Current Visit: Yes Medical - PN: Qual - VTE Deep Vein Thrombosis/Pulmonary Embolism Present on Admission: No
[2017-08-22] MEDS ORDERED: LISINOPRIL 10 MG TABLET PO ONE (13:20)
[2017-08-22] MEDS: SENNOSIDES/DOCUSATE SODIUM 1 TAB TABLET PO SCH (20:43)
[2017-08-23] MEDS: HYDROmorphone 2 MG/ML VIAL IV PRN ×7 (00:44→20:07)
[2017-08-23] MEDS: 0.9 % SODIUM CHLORIDE 1,000 ML IV SCH ×2 (05:04→18:46)
[2017-08-23] MEDS: 0.9 % SODIUM CHLORIDE 10 ML SYRINGE IV SCH ×3 (05:35→21:09)
[2017-08-23 06:27] LABS: Mean Cell Volume 93.9 fL (80.0-100.0); Mean Corpuscular HGB Conc 34.5 g/dL (31.0-36.0); Mean Corpuscular Hemoglobin 32.4 pg (26.0-34.0); Platelet Count 168 K/mcL (140-440); RBC 4.03 M/mcL (4.50-5.90); Red Cell Distribution Width 14.7 % (11.5-14.5)
[2017-08-23 07:28] LABS: ALT/SGPT 11 U/l (0-40); Albumin 3.7 gm/dL (3.2-5.2); Albumin/Globulin Ratio 1.4 (1.0-2.3); Alkaline Phosphatase 43 U/L (39-117); Bilirubin,Direct < 0.2 mg/dL (0.0-0.3); Blood Urea Nitrogen 5 mg/dl (6-20); Gamma Glutamyl Transpeptidase 206 U/L (8-61); Uric Acid 9.1 mg/dL (2.5-8.0)
[2017-08-23] MEDS: PHENYTOIN SOD 100 MG CAPSULE PO SCH ×3 (07:32→21:08)
[2017-08-23 07:39] LABS: Band Neutrophils % 2 % (0-10); Eosinophils % (Manual) 1 % (0-7); Lymphocytes % 20 % (15-49); Monocytes % (Manual) 10 % (1-12); Platelet Estimate NORMAL (NORMAL); RBC Morphology NORMAL (NORMAL); Segmented Neutrophils % 65 % (38-78)
[2017-08-23] MEDS: LISINOPRIL 10 MG TABLET PO SCH (09:46)
[2017-08-23] MEDS: HEPARIN 5,000 UNIT/ML VIAL SQ SCH ×2 (09:46→21:09)
[2017-08-23] MEDS: MULTIVIT,THER IRON,CA,FA & MIN 1 TABLET PO SCH (09:46)
[2017-08-23] MEDS: DOCUSATE SODIUM 100 MG CAPSULE PO SCH ×2 (09:46→21:09)
[2017-08-23] MEDS ORDERED: LORazepam 2 MG/ML VIAL IV PRN (11:17)
--- NOTE | 2017-08-23 11:17 | Internal Med Progress Note ---
Medical - PN: Subj Patient information: Note initiated : 08/23/17 at 11:15 am Service Date, if different from initiated Date: [] Patient: Lion Johnson a 32 y/o M admitted on 08/19/17 for Abdominal Pain/ Alcoholic Pancreatitis. Chief Complaint: [] Interval history: Mr. Johnson is a 32 year old M recent episode of acute pancreatitis secondary to alcohol 2 months ago. patient was managed as an outpatient conservatively. He was advised to abstain from alcohol however he continues to drink. He today comes in with 24 hour onset of worsening 10 out of 10 epigastric pain without radiation, main worse with food along with associated nausea. He reportedly had been consuming alcohol. He is affected with his . Initial workup in the ER was significant for elevated lipase over 1999. Abdominal ultrasound is pending. Hospitalist service was consulted in light of acute pancreatitis. Patient's initial Nikolai II and Elba score was low. hospitalist service was consulted for admission. At the time of evaluation patient is in moderate discomfort. He received 3 doses of Dilaudid. He is also received 2 L of crystalloid boluses. he denies substance abuse. Denies bloody stool or change in stool caliber. He denies fevers shaking chills abdominal distention yellow discoloration of skin headache photophobia or shortness of breath. 08/20-patient doing better. No overnight events except for persistent abdominal pain requiring IV opioids. On bowel rest with nothing by mouth. No concerns per staff. No fever chills nausea vomiting. continue crystalloids. 08/21-abdominal pain remarkably improved. No overnight events. Intermittently required in low-dose opioids. Start clears and jellos. CRP elevated at 10. Continue trending. CT abdomen pending. Clinically improving. No overnight fever or chills or unstable hemodynamics August 22-downtrending CRP however patient continues to experience abdominal pain. On sips and chips. CT abdomen shows calcification with signs of acute and chronic pancreatitis. No pseudocyst or hemorrhage. Attempting clears once abdominal pain improved. Counseling for alcohol cessation ongoing. Continue conservative management. Anticipate discharge in 48 hours once clinically improved. August 23- patient clinically improving however appears quite anxious and disgruntled due to lowering dose of IV opioids. CRP downtrending. tolerating clears including Jell-O.normal LVEF/calcium/blood glucose and triglycerides. Low Elba score is at 48 hours.continue supportive management. Wean IV opioids. Patient appears restless and anxious.no hallucinations or signs of alcohol withdrawal this time. on as needed benzodiazepine for signs of alcohol withdrawal/counter psychomotor agitation - Constitutional Vitals: Vital Signs Temp Pulse Resp BP Pulse Ox 97.8 F 85 18 134/88 95 08/23/17 07:14 08/23/17 08:00 08/23/17 08:00 08/23/17 07:14 08/23/17 08:00 Period Temp Pulse Resp BP Sys/Hess Pulse Ox Last 24 Hr 97.4 F-98.5 F 58-86 14-22 119-165/74-113 95-98 Intake and Output 08/22/17 08/23/17 08/23/17 21:59 05:59 13:59 Intake Total 1280 / 1280 150 / 150 Output Total 350 / 350 250 / 250 Balance 930 / 930 -100 / -100 Weight 182 lb 8 oz Intake & Output: Intake & Output 08/22/17 08/23/17 08/23/17 21:59 05:59 13:59 Intake Total 1280 / 1280 150 / 150 Output Total 350 / 350 250 / 250 Balance 930 / 930 -100 / -100 Weight 182 lb 8 oz Intake: IV 1000 / 1000 Sodium Chloride 0.9% 1,000 ml @ 1000 / 1000 75 mls/hr IV .[id number] [facility] Rx#: [id number] Oral 280 / 280 150 / 150 Output: Void Amount 350 / 350 250 / 250 Other: # Voids 1 1 Exam: restless and anxious Nonlabored breathing Ambulating moving all 4 extremities Medical - PN: Obj Da - Labs CBC & Chem 7: 08/23/17 05:21 08/23/17 05:22 Labs: Abnormal Lab Results 08/23/17 08/23/17 08/23/17 05:22 05:22 05:21 WBC RBC 4.03 L Hgb 13.1 L Hct 37.8 L RDW 14.7 H MPV 7.0 L Carbon Dioxide 18 L Anion Gap 20.0 H BUN 5 L Creatinine 0.6 L Glucose 69 L Uric Acid 9.1 H GGT 206 H C-Reactive Protein 10.0 H Triglycerides 08/22/17 08/22/17 08/21/17 04:56 04:56 05:08 WBC RBC 4.33 L Hgb Hct 40.9 L RDW 14.6 H MPV 7.3 L Carbon Dioxide 20 L Anion Gap 22.0 H 22.0 H BUN 4 L 3 L Creatinine Glucose Uric Acid 9.4 H 8.9 H GGT 174 H 168 H C-Reactive Protein 8.2 H 10.0 H Triglycerides 165 H 210 H 08/21/17 05:08 WBC 3.9 L RBC 4.23 L Hgb Hct 40.1 L RDW 15.0 H MPV 7.1 L Carbon Dioxide Anion Gap BUN Creatinine Glucose Uric Acid GGT C-Reactive Protein Triglycerides Meds: Medications Acetaminophen (Tylenol) 650 mg PO Q4-6HP PRN PRN Reason: PAIN/FEVER > 101 Docusate Sodium (Colace) 100 mg PO BID [facility] Last Admin: 08/23/17 09:46 Dose: 100 mg Guaifenesin/Codeine Phosphate (Robitussin Ac) 10 ml PO Q4HP PRN PRN Reason: Cough Heparin Sodium (Porcine) (Heparin) 5,000 unit SQ Q12 [facility] Last Admin: 08/23/17 09:46 Dose: 5,000 unit Hydralazine HCl (Apresoline) 0 mg IV Q4-6HP PRN PRN Reason: Hypertension Last Admin: 08/21/17 23:47 Dose: 10 mg Hydromorphone HCl (Dilaudid) 0.5 mg IV Q4-6HP PRN PRN Reason: PAIN LEVEL > 6 Potassium Chloride 40 meq/ (Dextrose) 520 mls @ 130 mls/hr IV UD PRN PRN Reason: K+ = or < 3.5 Magnesium Sulfate (Magnesium Sulfate) 2 gm in 50 mls @ 50 mls/hr IV UD PRN PRN Reason: MG = or < 1.7 Last Infusion: 08/22/17 10:20 Dose: Infused Acetaminophen (Ofirmev) 1,000 mg in 100 mls @ 200 mls/hr IV Q6HP PRN PRN Reason: PAIN/FEVER > 101 Sodium Chloride (Sodium Chloride 0.9%) 1,000 mls @ 75 mls/hr IV .[id number] [facility] Last Admin: 08/23/17 05:04 Dose: 75 mls/hr Iron Carb/Multivit/[place]/Folic Acid (Multivitamin W/Minerals) 1 tab PO DAILY [facility] Last Admin: 08/23/17 09:46 Dose: 1 tab Lisinopril (Zestril) 10 mg PO DAILY [facility] Last Admin: 08/23/17 09:46 Dose: 10 mg Ondansetron HCl (Zofran) 4 mg IV Q4-6HP PRN PRN Reason: Nausea And Vomiting Phenytoin Sodium (Dilantin) 100 mg PO TID [facility] Last Admin: 08/23/17 07:32 Dose: 100 mg Senna/Docusate Sodium (Senna Plus Tablet) 1 tab PO HS [facility] Last Admin: 08/22/17 20:43 Dose: 1 tab Sodium Chloride (Saline Flush) 10 ml IV Q8 [facility] Last Admin: 08/23/17 05:35 Dose: Not Given Trazodone HCl (Desyrel) 50 mg PO HSP PRN PRN Reason: Insomnia Last Admin: 08/22/17 00:56 Dose: 50 mg Medical - PN: A/P - Time Spent With Patient Total time spent is greater than 50% in coordination of care (as documented) at patient's floor/unit and/or counseling patient: 15 - 24 minutes (1) Acute alcoholic pancreatitis Status: Acute Assessment and plan: * Acute alcoholic pancreatitis-clinically improving. CRP downtrending. Continue crystalloids and antiemetics/analgesics. continue clears and advance as tolerated * Abdominal pain - on 4 hourly as needed opioids * Hypertension- on ENRIQUE inhibitor. systolics around 130s * History of seizure disorder-continuing oral phenytoin * Full code plan * continue conservative management * Pre-existing medical condition management as above Current Visit: Yes Medical - PN: Qual - VTE Deep Vein Thrombosis/Pulmonary Embolism Present on Admission: No
[2017-08-23] MEDS ORDERED: BISACODYL 10 MG SUPP.RECT PR PRN (11:20)
[2017-08-23] MEDS ORDERED: POTASSIUM CHLORIDE 20 MEQ/10 ML VIAL IV ONE (20:00)
[2017-08-23] MEDS: SENNOSIDES/DOCUSATE SODIUM 1 TAB TABLET PO SCH (21:09)
[2017-08-24] MEDS: HYDROmorphone 2 MG/ML VIAL IV PRN ×3 (00:01→08:12)
[2017-08-24] MEDS: 0.9 % SODIUM CHLORIDE 1,000 ML IV SCH (03:25)
[2017-08-24] MEDS: 0.9 % SODIUM CHLORIDE 10 ML SYRINGE IV SCH (06:11)
[2017-08-24 06:38] LABS: Mean Cell Volume 94.9 fL (80.0-100.0); Mean Corpuscular HGB Conc 34.1 g/dL (31.0-36.0); Mean Corpuscular Hemoglobin 32.4 pg (26.0-34.0); Platelet Count 179 K/mcL (140-440); RBC 4.14 M/mcL (4.50-5.90); Red Cell Distribution Width 14.8 % (11.5-14.5)
[2017-08-24 06:39] LABS: ALT/SGPT 14 U/l (0-40); Albumin 3.8 gm/dL (3.2-5.2); Albumin/Globulin Ratio 1.4 (1.0-2.3); Alkaline Phosphatase 46 U/L (39-117); Bilirubin,Direct < 0.2 mg/dL (0.0-0.3); Blood Urea Nitrogen 4 mg/dl (6-20); Gamma Glutamyl Transpeptidase 215 U/L (8-61); Uric Acid 8.6 mg/dL (2.5-8.0)
[2017-08-24 07:01] LABS: Band Neutrophils % 4 % (0-10); Eosinophils % (Manual) 5 % (0-7); Lymphocytes % 23 % (15-49); Monocytes % (Manual) 13 % (1-12); Platelet Estimate NORMAL (NORMAL); RBC Morphology NORMAL (NORMAL); Segmented Neutrophils % 54 % (38-78)
[2017-08-24] MEDS: PHENYTOIN SOD 100 MG CAPSULE PO SCH (08:00)
[2017-08-24] MEDS: HEPARIN 5,000 UNIT/ML VIAL SQ SCH (08:13)
[2017-08-24] MEDS: MULTIVIT,THER IRON,CA,FA & MIN 1 TABLET PO SCH (08:13)
[2017-08-24] MEDS: LISINOPRIL 10 MG TABLET PO SCH (08:14)
[2017-08-24] MEDS: DOCUSATE SODIUM 100 MG CAPSULE PO SCH (08:14)
--- NOTE | 2017-08-24 09:25 | Discharge Summary ---
Medical - DS: Prov Patient information: Note initiated : 08/24/17 at 9:23 am Service Date, if different from initiated Date: [] Patient: Lion Johnson 32 y/o M admitted on 08/19/17 for Abdominal Pain/ Alcoholic Pancreatitis. Chief Complaint: [] Date of admission: 08/19/17 19:01 Discharge date: 08/24/17 Consults: 08/23/17 15:34 Consult to Physician [CONS] Routine Comment: Consulting Provider: Pablo Iqbal Reason For Exam: Physician to Consult Medical - DS: Meds - Discharge Medications Prescriptions: HYDROcodone/APAP 5/325MG [Antler 5-325Mg] 1 tab PO Q4HP PRN #20 tab PRN Reason: Pain Lisinopril [Zestril] 10 mg PO DAILY #30 tab Active and Home Medications: Home Medications Phenytoin Sod [Dilantin] 100 mg PO TID 08/19/17 [History Confirmed 08/19/17 Last Taken 08/19/17 14:00] HYDROcodone/APAP 5/325MG [Antler 5-325Mg] 1 tab PO Q4HP PRN #20 tab 08/24/17 [Rx Last Taken Unknown] Lisinopril [Zestril] 10 mg PO DAILY #30 tab 08/24/17 [Rx Last Taken Unknown] Medical - DS: Hosp Hospital course: DISCHARGE DIAGNOSIS * Acute alcoholic pancreatitis-clinically improving. patient is now pain-free. Tolerating full liquids and advancing to soft diet. Discharge later today. Follow-up PCP in 5 days. Refrain from alcohol to prevent future episodes of pancreatitis * Abdominal pain - clinically resolved * Hypertension- on ENRIQUE inhibitor. systolics around 120s * History of seizure disorder-continuing oral phenytoin At home dose. follow-up PCP [facility] Mr. Johnson is a 32 year old M recent episode of acute pancreatitis secondary to alcohol 2 months ago. patient was managed as an outpatient conservatively. He was advised to abstain from alcohol however he continues to drink. He today comes in with 24 hour onset of worsening 10 out of 10 epigastric pain without radiation, main worse with food along with associated nausea. He reportedly had been consuming alcohol. He is affected with his . Initial workup in the ER was significant for elevated lipase over 1999. Abdominal ultrasound is pending. Hospitalist service was consulted in light of acute pancreatitis. Patient's initial [place] II and Cleveland score was low. hospitalist service was consulted for admission.CRP 0.3 At the time of evaluation patient is in moderate discomfort. He received 3 doses of Dilaudid. He is also received 2 L of crystalloid boluses. he denies substance abuse. Denies bloody stool or change in stool caliber. He denies fevers shaking chills abdominal distention yellow discoloration of skin headache photophobia or shortness of breath. 08/20-patient doing better. No overnight events except for persistent abdominal pain requiring IV opioids. On bowel rest with nothing by mouth. No concerns per staff. No fever chills nausea vomiting. continue crystalloids.CRP 1.3 08/21-abdominal pain remarkably improved. No overnight events. Intermittently required in low-dose opioids. Start clears and jellos. CRP elevated at 10. Continue trending. CT abdomen pending. Clinically improving. No overnight fever or chills or unstable hemodynamics August 22-downtrending CRP at 8 however patient continues to experience abdominal pain. On sips and chips. CT abdomen shows calcification with signs of acute and chronic pancreatitis. No pseudocyst or hemorrhage. Attempting clears once abdominal pain improved. Counseling for alcohol cessation ongoing. Continue conservative management. Anticipate discharge in 48 hours once clinically improved. August 23- patient clinically improving however appears quite anxious and disgruntled due to lowering dose of IV opioids. CRP downtrending. tolerating clears including Jell-O.normal LVEF/calcium/blood glucose and triglycerides. Low Cleveland score is at 48 hours.continue supportive management. Wean IV opioids. Patient appears restless and anxious.no hallucinations or signs of alcohol withdrawal this time. on as needed benzodiazepine for signs of alcohol withdrawal/counter psychomotor agitation August 24-patient doing well. No overnight events. Tolerating clears and advancing to full liquids/soft diet. Discharge later today. blood pressure improved control on lisinopril . discharge on 5 mg lisinopril daily. Follow up PCP. Counseling performed for alcohol cessation in light of high risk recurrent episodes of pancreatitis Discharge diagnosis: . - Time Spent with Patient Total time spent providing and/or coordinating discharge services: Greater than 30 minutes Medical - DS: Exam - Constitutional Vitals: Vital Signs Temp Pulse Resp BP Pulse Ox 08/24/17 07:26 98.5 F 16 119/76 99 08/24/17 04:00 98.3 F 52 L 12 124/76 99 08/23/17 23:33 98.1 F 61 12 153/99 98 08/23/17 19:34 98.2 F 76 14 147/97 96 08/23/17 16:00 97.0 F 69 18 151/99 98 08/23/17 12:00 98.4 F 70 18 160/104 98 Intake and Output 08/23/17 08/24/17 08/24/17 21:59 05:59 13:59 Intake Total 1051 / 1051 770 / 770 Output Total 250 / 250 850 / 850 350 / 350 Balance 801 / 801 -80 / -80 -350 / -350 Intake: IV 1051 / 1051 520 / 520 Sodium Chloride 0.9% 1,000 ml @ 1000 / 1000 75 mls/hr IV .[id number] [facility] Rx#: [id number] Potassium Chloride 40 Meq In 520 / 520 Dextrose 5% in Water 500 ml @ 130 mls/hr IV UD PRN Rx#: [id number] Vitamin B1 100 mg In Sodium 51 / 51 Chloride 0.9% 50 ml @ 50 mls/hr IV DAILY [facility] Rx#:[id number] Oral 250 / 250 Output: Void Amount 250 / 250 850 / 850 350 / 350 Other: Meal cream of mushroom soup Percent of Meal Consumed 95% Feeding Ability Independent # Voids 1 Weight 180 lb 8 oz Medical - DS: Data Labs on day of discharge: Labs from last 24 hours 08/24/17 08/24/17 08/23/17 04:58 04:58 05:22 WBC 3.5 L RBC 4.14 L Hgb 13.4 L Hct 39.3 L MCV 94.9 MCH 32.4 MCHC 34.1 RDW 14.8 H Plt Count 179 MPV 7.2 L Total Counted 100 Seg Neutrophils % 54 Band Neutrophils % 4 Lymphocytes % 23 Monocytes % (Manual) 13 H Eosinophils % (Manual) 5 Reactive Lymphocytes 1 Platelet Estimate Normal RBC Morphology Normal Sodium 139 Potassium 3.7 Chloride 101 Carbon Dioxide 19 L Anion Gap 19.0 H BUN 4 L Creatinine 0.6 L GFR Calculation 135 Glucose 66 L Uric Acid 8.6 H Calcium 8.9 Phosphorus 2.8 Magnesium 1.9 Total Bilirubin 0.4 Direct Bilirubin < 0.2 GGT 215 H AST 21 ALT 14 Alkaline Phosphatase 46 Lactate Dehydrogenase 124 C-Reactive Protein 10.0 H Total Protein 6.6 Albumin 3.8 Globulin 2.8 Albumin/Globulin Ratio 1.4 Triglycerides 154 H Medical - DS: A/P - Patient/Caregiver Discharge Instructions Activity: increase activity as tolerated Diet: Low Fat Additional Instructions: continue low-fat diet Return to ER if worsening abdominal pain Absolutely no alcohol given recurrent alcoholic pancreatitis and risk of future life-threatening episodes Continue ENRIQUE inhibitor for hypertension as advised Follow-up primary care physician in 5 days-to schedule appointment prior to discharge with PCP Low-fat diet seizure precaution and seizure watch Prescriptions: HYDROcodone/APAP 5/325MG [Antler 5-325Mg] 1 tab PO Q4HP PRN #20 tab PRN Reason: Pain Lisinopril [Zestril] 10 mg PO DAILY #30 tab - Problem Maintenance (1) Acute alcoholic pancreatitis Status: Acute Qualifiers: Acute pancreatitis complication: no infection or necrosis Qualified Code(s) : K85.20 - Alcohol induced acute pancreatitis without necrosis or infection - Follow up Plan Disposition: Home, Self-Care Prognosis: Fair Rehab Potential: Fair I certify that the patient requires SNF services: Yes Overall status at discharge: patient is progressing back to baseline Medical - DS: Qual - VTE Deep Vein Thrombosis/Pulmonary Embolism Present on Admission: No
[2017-08-24] MEDS ORDERED: HYDROcodone/APAP 5/325MG TABLET PO PRN (09:26)
[2017-08-24] MEDS: hydrALAZINE 20 MG/ML VIAL IV PRN (14:18)
== END 2017-08-24 14:45 | disposition home or self-care (01) | DRG 440 ==
LOC: ED 15:27 → MEDSUR 19:01
PROVIDERS: ADMIT Internal Medicine; ATTEND Internal Medicine

== ENCOUNTER 2017-12-23 11:34 | Observation (INO) ==
[2017-12-23] MEDS ORDERED: IOPAMIDOL 100 ML BOTTLE IV ONE (11:35)
[2017-12-23] MEDS ORDERED: ONDANSETRON 4 MG/2 ML VIAL IV ONE (11:37)
[2017-12-23] MEDS ORDERED: PANTOPRAZOLE 40 MG VIAL IV ONE (12:03)
[2017-12-23] MEDS ORDERED: 0.9 % SODIUM CHLORIDE 1,000 ML IV ONE ×3 (12:04→15:39)
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
[2017-12-23 12:15] LABS: Basophils # (Auto) 0 K/mcL (0.0-0.3); Basophils % (Auto) 0.3 % (0.0-2.0); Eosinophils # (Auto) 0.1 K/mcL (0.0-0.7); Eosinophils % (Auto) 1.2 % (0.0-7.0); Granulocytes % (Auto) 32.6 % (38.0-78.0); Lymphocytes # (Auto) 2.8 K/mcL (1.5-4.8); Lymphocytes % (Auto) 59.6 % (15.5-49.0); Mean Cell Volume 91.1 fL (80.0-100.0); Mean Corpuscular HGB Conc 34.1 g/dL (31.0-36.0); Mean Corpuscular Hemoglobin 31.1 pg (26.0-34.0); Monocytes # (Auto) 0.3 K/mcL (0.1-0.9); Monocytes % (Auto) 6.3 % (1.0-12.0); Platelet Count 276 K/mcL (140-440); RBC 5.27 M/mcL (4.50-5.90); Red Cell Distribution Width 13.3 % (11.5-14.5)
[2017-12-23] MEDS ORDERED: PHENYTOIN SOD 100 MG CAPSULE PO ONE (12:30)
[2017-12-23 12:36] LABS: ALT/SGPT 54 U/l (0-40); Albumin 4.8 gm/dL (3.2-5.2); Albumin/Globulin Ratio 1.8 (1.0-2.3); Alkaline Phosphatase 69 U/L (39-117); Amylase 39 U/L (28-100); Blood Urea Nitrogen 11 mg/dl (6-20); Lipase 90 U/L (7-60)
[2017-12-23] MEDS ORDERED: HYDROmorphone 2 MG/ML VIAL IV ONE (12:52)
[2017-12-23 14:30] LABS: Appearance,Urine CLEAR; Bilirubin,Urine NEG (NEG); Color,Urine STRAW; Glucose,Urine (UA) NEGATIVE (NEG); Leukocyte Esterase,Urine NEG /uL (NEG); Protein,Urine NEG (NEG); Urine Blood NEG mg/dL (<0.03); Urobilinogen,Urine NEG (NEG)
[2017-12-23 14:38] LABS: Amphetamine Screen,Urine NONE DETECTED (NONDETECTED); Benzodiazepines Screen,Urine NONE DETECTED (NONDETECTED); Cocaine Screen,Urine NONE DETECTED (NONDETECTED); Opiate Screen,Urine NONE DETECTED (NONDETECTED); Oxycodone, Urine Screen NONE DETECTED (NONDETECTED)
[2017-12-23] MEDS: HYDROmorphone 2 MG/ML VIAL IV PRN ×2 (14:41→15:33)
[2017-12-23] MEDS ORDERED: PROMETHAZINE 25 MG/ML VIAL IV ONE (14:44)
--- NOTE | 2017-12-23 15:16 | XRay Report ---
HISTORY: Epigastric pain FINDINGS: The bowel gas pattern is normal. No free intra-abdominal air is present. There is no apparent mass or abnormal soft tissue calcification. The bones are normal. IMPRESSION: Normal abdomen Interpreted and Authenticated by: Bari Means 12/23/17
--- NOTE | 2017-12-23 16:23 | Cat Scan Report ---
CLINICAL INFORMATION: Abdominal pain, nausea, diarrhea and pancreatitis symptoms COMPARISON: None. TECHNIQUE: Following injection of intravenous contrast the patient was scanned during the portal venous phase from the diaphragm through the symphysis pubis. Sagittal and coronal reformats were created.. Radiation exposure was limited using dose reduction technology. FINDINGS: The liver is normal in size but there is mild generalized fatty infiltration. There is no radiographic evidence of cirrhosis and no mass is present. The gallbladder is normal with no stones or thickening of the wall. The intra and extrahepatic bile ducts are normal in caliber. The spleen is normal in size and homogeneous. No varices are identified and there is no ascites. Along the inferior margin the head of the pancreas there is a cluster of multiple small calcifications. There is low-level inflammation in pancreatic parenchyma in this region. There is also mild inflammation in the adjacent peripancreatic fat, adjacent to the head. The neck, body and tail of the pancreas are normal. The pancreatic duct is nondilated. No pseudocyst is present. The adrenals and kidneys are normal. There is no kidney stone or hydronephrosis. The bowel gas pattern is normal. The appendix is noninflamed. No abnormality is present within the pelvis. Patient has anterior wedging of the thoracic vertebra from T9 through T12. The adjacent disc spaces are moderately narrowed and there are multiple Schmorl's nodes. This is due to Scheuermann's disease. IMPRESSION: Acute superimposed upon chronic pancreatitis Mild fatty infiltration of the liver Dr. Goyal was called with results Interpreted and Authenticated by: Bari Means 12/23/17
--- NOTE | 2017-12-23 17:37 | Internal Med History&Physical ---
Medical - H&P: HPI Patient information: Note initiated : 12/23/17 at 5:20 pm Service Date, if different from initiated Date: [] Patient: Lion Johnson a 32 y/o M admitted on for Nausea, diarrhea, Abdominal pain. Chief Complaint: [] History of present illness: Mr. Johnson is a 32 year old M with h/o alcohol use, chr pancreatitis on Ct presents to the ER with complaints of nausea, vomiting and abdominal pain x 1 day The patient notes that he has not been feeling well for last few days, the pain initially started last sunday/ sunday, it was initially in his back (CT shows him having wedge fracture in that region), he thought its work related injury, the patient then took tylenol to see if this helped, he also notes he had been to a chiropractor to no avail, he then started to drink alcohol from last night, 2 large cans 12% beer. He also has been having abdominal pain from yesterday, nausea, vomiting, loose stools, he thought this was related to viral syndrome, but these symptoms continued to get worse and he eventually came to the hospital for further management. He notes he is not able to keep anything down at all, and even taking a sip of water for his seizure medications or blood pressure medication makes his symptoms worse. In the ER the patient was hemodynamically stable, he had no fever, rates his pain very severe not responding to IV pain meds, he also did not respond to IV ondansetron, Plan was to admit the patient, CT scan requested by me, [id number] acute on chr pancreatitis, liapse mildly elevated at 90, he always has elevated lipase it seems. He was last admitted in august for acute pancreatitis and was educated at length regarding abstinence from alcohol. Pt note he was sober for a month. The patient rates his pain in the ER around 8, he seems quite comfortable for his high pain ratings, which he attributes to his high pain threshold. Notes that if his pain score is 8, that would be 16 for someone else. I was informed later that the patient noted that he wanted go and hurt himself if the pain medication is not working. It seems that the ER provider is planning on having [facility] evaluate the patient before he is moved to the floor. The patient needs to be clear from etoh before [facility] can evaluate the patient and so they will be keeping the patient in the ER till [facility] has seen the patient and cleared him from suicidal watch. I will assume care once patient is on the floor/ cleared by [facility] - Constitutional Additional comments: CONSTITUTIONAL: No weight loss, fever, chills, some fatigue present HEENT: Eyes: No visual loss, blurred vision, double vision or yellow sclerae. Ears, Nose, Throat: No hearing loss, sneezing, congestion, runny nose or sore throat. SKIN: No rash or itching. CARDIOVASCULAR: No chest pain, chest pressure or chest discomfort. No palpitations or edema. RESPIRATORY: No shortness of breath, cough or sputum. GASTROINTESTINAL: nausea present, vomiting present, abodminal pain present, diarrhea present, no blood in stools no [place] GENITOURINARY: Denies Burning on urination. Blood in urine, or foul smelling urine NEUROLOGICAL: No headache, dizziness, syncope, paralysis, tremors, numbness or tingling in the extremities. No change in bowel or bladder control. MUSCULOSKELETAL: No muscle, present back pain, no joint pain or stiffness. HEMATOLOGIC: No bleeding or bruising. No enlarged nodes ENDOCRINOLOGIC: No reports of sweating, cold or heat intolerance. No polyuria or polydipsia. ALLERGIES: No hives, eczema or rhinitis. Skin: No rash, no jaundice, cyanosis or pallor. Medical - H&P: PMH Medical history: Seizure disorder Hypertension Pancreatitis h/o Supraventricular tachycardia (Acute) Family history: reviewed and not pertinent Medical - H&P: Meds Home Medications Medication Instructions Recorded Confirmed Type Phenytoin Sod [Dilantin] 100 mg PO TID 08/19/17 08/19/17 History HYDROcodone/APAP 5/325MG [[place] 1 tab PO Q4HP PRN #20 tab 08/24/17 Rx 5-325Mg] Lisinopril [Zestril] 5 mg PO DAILY #30 tab 08/24/17 Rx Benzocaine [Oral Anesthetic] 7 gm MM TID PRN #1 gel..gram. 09/19/17 Rx Etodolac 400 mg PO BID #30 tab 09/19/17 Rx oxyCODONE HCL [Oxycodone HCl] 5 mg PO Q4HP PRN #10 tab 11/08/17 Rx oxyCODONE HCL [Oxycodone HCl] 10 tab PO Q4HP PRN #12 tab 11/10/17 Rx Allergies Allergy/AdvReac Type Severity Reaction Status Date / Time No Known Drug Allergies Allergy Verified 11/10/17 23:05 Medical - H&P: Exam - Constitutional Vitals: Temp Pulse Resp BP Pulse Ox 98.6 F 79 18 122/84 98 12/23/17 11:55 12/23/17 17:09 12/23/17 11:34 12/23/17 17:09 12/23/17 17:09 Exam: GENERAL: The patient is a well-developed, well-nourished in no apparent distress. Is alert and oriented x3. VITAL SIGNS: Reviewed and as noted elsewhere. HEENT: Head is normocephalic and atraumatic. Extraocular muscles are intact. Pupils are equal, round, and reactive to light. Nares appeared normal. Mouth appears any without lesions. Mucous membranes are moist. NECK: Normal to inspection, Supple, No lymphadenopathy or thyromegaly. LUNGS: Air entry equal on both sides, no wheezing, crackles or rhonchi noted. No accessory muscles of respiration HEART: Regular rate and rhythm normal, S1 and S2 heard, no Gallop, S3 or Rub Noted, No Gross murmur heard. ABDOMEN: Soft, nontender, and nondistended. Positive bowel sounds. No hepatosplenomegaly was noted. EXTREMITIES: No cyanosis, clubbing, rash, lesions or edema. NEUROLOGIC: Cranial nerves II through XII are grossly intact. Motor and Sensory System Grossly Intact PSYCHIATRIC: Normal affect, Normal Mood. Appropriate Behavior. SKIN: No ulceration or wounds noted, No jaundice, No rash noted. Medical - H&P: Reslt - Labs CBC & Chem 7: 12/23/17 11:48 12/23/17 11:48 Labs: Short CBC 12/23/17 Range/Units 11:48 WBC 4.7 (4.5-11.0) K/mcL Hgb 16.4 (13.5-16.5) g/dL Hct 48.0 (41.0-55.0) % Plt Count 276 (140-440) K/mcL BMP 12/23/17 11:48 Sodium 141 Potassium 4.7 Chloride 103 Carbon Dioxide 25 BUN 11 Creatinine 0.9 Glucose 106 H Calcium 9.2 Liver Function 12/23/17 Range/Units 11:48 Total Bilirubin 0.4 (0.0-1.0) mg/dL AST 42 H (0-37) U/l ALT 54 H (0-40) U/l Alkaline Phosphatase 69 (39-117) U/L Albumin 4.8 (3.2-5.2) gm/dL Urine 12/23/17 Range/Units 13:50 Urine Color Straw Urine Appearance Clear Urine pH 8.0 (5.0-9.0) Ur Specific [place] 1.010 (1.000-1.035) Urine Protein Neg (NEG) mg/dL Urine Glucose (UA) Negative (NEG) mg/dL Medical - H&P: A/P - Narrative A/P Narrative: A/P Acute on chr pancreatitis Suicidal ideations? Hypertension Alcohol intoxication Alcohol abuse Seizure disorder Plan Admit to med surg as obs patient he is quite comfortable for someone who is describing such high pain scores, but patient seems quite offended when he felt that the ER doc treated him like someone seeking drugs. I explained to him that i will try a multi prong approach to manage his pain. IV tylenol, IV ketorolac as well as IV morphine q4hs for pain management He will be evaluated by Q for SI before he comes to the floor, IV ppi Swictch dilantin to IV IV hydralazine prn for htn CIWA protocol IV Thiamine, IV d5w with KCL to maintain hydration status. clear liquid diet trial tomorrow. educated again need for alcohol cessation and that his case is made worse with alcohol. DVT hep sq diet npo Full code. Social History - Tobacco smoking status: Former smoker
[2017-12-23] MEDS ORDERED: diphenhydrAMINE 50 MG/ML VIAL IV PRN (20:02)
[2017-12-23] MEDS ORDERED: ONDANSETRON 4 MG/2 ML VIAL IV PRN (20:02)
[2017-12-23] MEDS ORDERED: hydrALAZINE 20 MG/ML VIAL IV PRN (20:02)
[2017-12-23] MEDS ORDERED: LORazepam 2 MG/ML VIAL IV PRN (20:02)
[2017-12-23] MEDS ORDERED: NALOXONE HCL 0.4 MG/ML VIAL IV PRN (20:02)
[2017-12-23] MEDS ORDERED: THIAMINE 100 MG in 0.9 % SODIUM CHLORIDE 50 ML IV ONE (20:02)
[2017-12-23] MEDS ORDERED: PROMETHAZINE 25 MG/ML VIAL IV PRN (20:02)
[2017-12-23] MEDS ORDERED: PROMETHAZINE 25 MG/ML VIAL ONE (20:30)
[2017-12-23] MEDS: KETOROLAC 30 MG/ML VIAL IV SCH ×2 (20:50→23:55)
[2017-12-23] MEDS: DEXTROSE 5%-1/2NS W/40MEQ KCL 1,000 ML IV SCH (20:50)
[2017-12-23] MEDS: PANTOPRAZOLE 40 MG VIAL IV SCH (20:50)
[2017-12-23] MEDS: 0.9 % SODIUM CHLORIDE 10 ML SYRINGE IV SCH (20:52)
[2017-12-23] MEDS: HEPARIN 5,000 UNIT/ML VIAL SQ SCH (20:52)
[2017-12-23] MEDS: ACETAMINOPHEN 1,000 MG/100 ML BOTTLE IV SCH (20:52)
[2017-12-23] MEDS ORDERED: PHENYTOIN SOD 100 MG/2 ML VIAL IV SCH (21:00)
[2017-12-24] MEDS: 0.9 % SODIUM CHLORIDE 10 ML SYRINGE IV SCH ×3 (05:21→22:40)
[2017-12-24 05:41] LABS: Basophils # (Auto) 0 K/mcL (0.0-0.3); Basophils % (Auto) 0.3 % (0.0-2.0); Eosinophils # (Auto) 0.2 K/mcL (0.0-0.7); Eosinophils % (Auto) 3.1 % (0.0-7.0); Granulocytes % (Auto) 49.4 % (38.0-78.0); Lymphocytes # (Auto) 2.3 K/mcL (1.5-4.8); Lymphocytes % (Auto) 41.4 % (15.5-49.0); Mean Cell Volume 91.8 fL (80.0-100.0); Mean Corpuscular HGB Conc 34.1 g/dL (31.0-36.0); Mean Corpuscular Hemoglobin 31.3 pg (26.0-34.0); Monocytes # (Auto) 0.3 K/mcL (0.1-0.9); Monocytes % (Auto) 5.8 % (1.0-12.0); Platelet Count 215 K/mcL (140-440); RBC 4.63 M/mcL (4.50-5.90); Red Cell Distribution Width 13.1 % (11.5-14.5)
[2017-12-24] MEDS: KETOROLAC 30 MG/ML VIAL IV SCH ×3 (05:46→17:36)
[2017-12-24 05:56] LABS: ALT/SGPT 37 U/l (0-40); Albumin 4.1 gm/dL (3.2-5.2); Albumin/Globulin Ratio 1.9 (1.0-2.3); Alkaline Phosphatase 58 U/L (39-117); Bilirubin,Direct < 0.2 mg/dL (0.0-0.3); Blood Urea Nitrogen 12 mg/dl (6-20); Gamma Glutamyl Transpeptidase 339 U/L (8-61)
[2017-12-24] MEDS: ACETAMINOPHEN 1,000 MG/100 ML BOTTLE IV SCH ×3 (07:31→22:38)
[2017-12-24] MEDS: PANTOPRAZOLE 40 MG VIAL IV SCH ×2 (07:32→17:36)
[2017-12-24] MEDS: PHENYTOIN SOD 100 MG/2 ML VIAL IV SCH ×3 (08:23→22:39)
[2017-12-24] MEDS: THIAMINE 100 MG in 0.9 % SODIUM CHLORIDE 50 ML IV SCH (10:24)
[2017-12-24] MEDS: HEPARIN 5,000 UNIT/ML VIAL SQ SCH ×2 (10:25→22:39)
[2017-12-24] MEDS: DEXTROSE 5%-1/2NS W/40MEQ KCL 1,000 ML IV SCH ×2 (10:25→23:14)
--- NOTE | 2017-12-24 15:05 | Internal Med Progress Note ---
Medical - PN: Subj Patient information: Note initiated : 12/24/17 at 3:02 pm Service Date, if different from initiated Date: [] Patient: Lion Johnson a 32 y/o M admitted on 12/23/17 for Nausea, Diarrhea, Abdominal Pain/Pancreatitis. Chief Complaint: [] Interval history: Mr. Johnson is a 32 year old M with h/o alcohol use, chr pancreatitis on Ct presents to the ER with complaints of nausea, vomiting and abdominal pain x 1 day The patient notes that he has not been feeling well for last few days, the pain initially started last sunday/ sunday, it was initially in his back (CT shows him having wedge fracture in that region), he thought its work related injury, the patient then took tylenol to see if this helped, he also notes he had been to a chiropractor to no avail, he then started to drink alcohol from last night, 2 large cans 12% beer. He also has been having abdominal pain from yesterday, nausea, vomiting, loose stools, he thought this was related to viral syndrome, but these symptoms continued to get worse and he eventually came to the hospital for further management. He notes he is not able to keep anything down at all, and even taking a sip of water for his seizure medications or blood pressure medication makes his symptoms worse. In the ER the patient was hemodynamically stable, he had no fever, rates his pain very severe not responding to IV pain meds, he also did not respond to IV ondansetron, Plan was to admit the patient, CT scan requested by me, [id number] acute on chr pancreatitis, liapse mildly elevated at 90, he always has elevated lipase it seems. He was last admitted in august for acute pancreatitis and was educated at length regarding abstinence from alcohol. Pt note he was sober for a month. The patient rates his pain in the ER around 8, he seems quite comfortable for his high pain ratings, which he attributes to his high pain threshold. Notes that if his pain score is 8, that would be 16 for someone else. I was informed later that the patient noted that he wanted go and hurt himself if the pain medication is not working. It seems that the ER provider is planning on having [facility] evaluate the patient before he is moved to the floor. The patient needs to be clear from etoh before [facility] can evaluate the patient and so they will be keeping the patient in the ER till [facility] has seen the patient and cleared him from suicidal watch. I will assume care once patient is on the floor/ cleared by [facility] 12/24 pt seen examined, pain still there, but stable, lipase elevated to 120, clinically pt stable no fever, no nausea and or vomiting since yesterday advance diet today, to liquid Pertinent ROS: Denies headache, dizziness Denies chest pain, palpitations Denies cough or shortness of breath present abdominal pain, no nausea or vomiting. - Constitutional Vitals: Vital Signs Temp Pulse Resp BP Pulse Ox 98 F 56 L 16 132/97 98 12/24/17 11:33 12/24/17 03:39 12/24/17 11:33 12/24/17 11:33 12/24/17 11:33 Period Temp Pulse Resp BP Sys/Hess Pulse Ox Last 24 Hr 97.3 F-98.6 F 56-81 14-20 108-136/69-97 96-99 Intake and Output 12/24/17 12/24/17 12/24/17 05:59 13:59 21:59 Intake Total 1660 / 1660 Output Total 350 / 350 150 / 150 Balance -350 / -350 1510 / 1510 Intake & Output: Intake & Output 12/24/17 12/24/17 12/24/17 05:59 13:59 21:59 Intake Total 1660 / 1660 Output Total 350 / 350 150 / 150 Balance -350 / -350 1510 / 1510 Intake: IV 1000 / 1000 Dextrose 5%-1/2Ns W/40Meq KCl 1 1000 / 1000 ,000 ml @ 75 mls/hr IV .[id number] [facility] Rx#:[id number] Oral 660 / 660 Output: Void Amount 350 / 350 150 / 150 Other: Meal Lunch Percent of Meal Consumed 100% Exam: Constitutional; Afebrile, cooperative, alert, not in distress. Respiratory system: Air Entry equal on both sides, No crackles or wheezing, no rhonchi. CVS- Rate rhythm regular, S1,S2 heard, no gallop, no rub. Abdomen- Soft abdomen, no organomegaly,epigastric tenderness, no guarding or rigidity, [employer]- AOOx3, moving all extremities, no gross focal deficit noted. Medical - PN: Obj Da - Labs CBC & Chem 7: 12/24/17 04:03 12/24/17 04:02 Labs: Abnormal Lab Results 12/24/17 12/24/17 12/23/17 04:03 04:02 17:30 MPV Gran % Lymph % (Auto) Gran # Glucose POC Glucose Uric Acid 9.0 H POC WB Ioniz Calcium GGT 339 H AST ALT Triglycerides 447 H Lipase 127 H Ethyl Alcohol 0.079 H 12/23/17 12/23/17 12/23/17 11:48 11:48 11:48 MPV 7.3 L Gran % 32.6 L Lymph % (Auto) 59.6 H Gran # 1.5 L Glucose 106 H POC Glucose 106 H Uric Acid POC WB Ioniz Calcium 1.10 L GGT AST 42 H ALT 54 H Triglycerides Lipase 90 H Ethyl Alcohol 0.168 H Meds: Medications Diphenhydramine HCl (Benadryl) 12.5 mg IV Q4HP PRN PRN Reason: Allergic Symptoms Heparin Sodium (Porcine) (Heparin) 5,000 unit SQ Q12 [facility] Last Admin: 12/24/17 10:25 Dose: 5,000 unit Hydralazine HCl (Apresoline) 10 mg IV Q4HP PRN PRN Reason: Hypertension Potassium Chloride/Dextrose/Sod Cl (Dextrose 5%-1/2ns W/40meq Kcl) 1,000 mls @ 75 mls/hr IV .[id number] [facility] Last Admin: 12/24/17 10:25 Dose: 75 mls/hr Thiamine HCl 100 mg/ Sodium (Chloride) 51 mls @ 50 mls/hr IV DAILY [facility] Stop: 12/26/17 10:02 Last Admin: 12/24/17 10:24 Dose: 50 mls/hr Acetaminophen (Ofirmev) 1,000 mg in 100 mls @ 200 mls/hr IV Q8 [facility] Last Admin: 12/24/17 07:31 Dose: 200 mls/hr Ketorolac Tromethamine (Toradol) 30 mg IV Q6 [facility] Stop: 12/25/17 12:01 Last Admin: 12/24/17 12:00 Dose: 30 mg Lorazepam (Ativan) 0 mg IV Q4HP PRN; Protocol PRN Reason: Alcohol Withdrawal Morphine Sulfate (Morphine) 4 mg IV Q2HP PRN PRN Reason: PAIN LEVEL > 6 Last Admin: 12/24/17 14:12 Dose: 4 mg Naloxone HCl (Narcan) 0.1 mg IV Q2MIN PRN PRN Reason: Opiate Reversal Ondansetron HCl (Zofran) 4 mg IV Q6HP PRN PRN Reason: Nausea And Vomiting Pantoprazole Sodium (Protonix) 40 mg IV BIDAC [facility] Last Admin: 12/24/17 07:32 Dose: 40 mg Phenytoin Sodium (Dilantin) 100 mg IV Q8 [facility] Last Admin: 12/24/17 14:12 Dose: 100 mg Promethazine HCl (Phenergan) 12.5 mg IV Q6HP PRN PRN Reason: Nausea And Vomiting Sodium Chloride (Saline Flush) 10 ml IV Q8 [facility] Last Admin: 12/24/17 05:21 Dose: Not Given Medical - PN: A/P - Time Spent With Patient Total time spent is greater than 50% in coordination of care (as documented) at patient's floor/unit and/or counseling patient: - Narrative A/P Narrative: A/P Acute on chr pancreatitis Suicidal ideations? Hypertension Alcohol intoxication Alcohol abuse Seizure disorder Plan Continue IV morphine, IV tylenol, IV toradol advance diet no e/o withdrwal so far ciwa ongoing iv thiamine, IV prn bp meds IV dilantin if able to tolerate po can d/c in AM DVT hep sq diet npo Full code. Medical - PN: Qual - VTE Deep Vein Thrombosis/Pulmonary Embolism Present on Admission: No
--- NOTE | 2017-12-24 16:43 | Internal Med Progress Note ---
Medical - PN: Subj Patient information: Note initiated : 12/24/17 at 4:38 pm Service Date, if different from initiated Date: [] Patient: Lion Johnson 32 y/o M admitted on 12/23/17 for Nausea, Diarrhea, Abdominal Pain/Pancreatitis. Chief Complaint: [] pancreatitis - Constitutional Vitals: Vital Signs Temp Pulse Resp BP Pulse Ox 98 F 56 L 16 132/97 98 12/24/17 11:33 12/24/17 03:39 12/24/17 11:33 12/24/17 11:33 12/24/17 11:33 Period Temp Pulse Resp BP Sys/Hess Pulse Ox Last 24 Hr 97.3 F-98.6 F 56-81 14-20 108-136/69-97 96-99 Intake and Output 12/24/17 12/24/17 12/24/17 05:59 13:59 21:59 Intake Total 1811 / 1811 Output Total 350 / 350 150 / 150 150 / 150 Balance -350 / -350 1661 / 1661 -150 / -150 Intake & Output: Intake & Output 12/24/17 12/24/17 12/24/17 05:59 13:59 21:59 Intake Total 1811 / 1811 Output Total 350 / 350 150 / 150 150 / 150 Balance -350 / -350 1661 / 1661 -150 / -150 Intake: IV 1151 / 1151 Dextrose 5%-1/2Ns W/40Meq KCl 1 1000 / 1000 ,000 ml @ 75 mls/hr IV .[id number] [facility] Rx#:[id number] Vitamin B1 100 mg In Sodium 51 / 51 Chloride 0.9% 50 ml @ 50 mls/hr IV DAILY [facility] Rx#:[id number] Oral 660 / 660 Output: Void Amount 350 / 350 150 / 150 150 / 150 Other: Meal Lunch Lunch Percent of Meal Consumed 100% 100% Medical - PN: Obj Da - Labs CBC & Chem 7: 12/24/17 04:03 12/24/17 04:02 Labs: Abnormal Lab Results 12/24/17 12/24/17 12/23/17 04:03 04:02 17:30 MPV Gran % Lymph % (Auto) Gran # Glucose POC Glucose Uric Acid 9.0 H POC WB Ioniz Calcium GGT 339 H AST ALT Triglycerides 447 H Lipase 127 H Ethyl Alcohol 0.079 H 12/23/17 12/23/17 12/23/17 11:48 11:48 11:48 MPV 7.3 L Gran % 32.6 L Lymph % (Auto) 59.6 H Gran # 1.5 L Glucose 106 H POC Glucose 106 H Uric Acid POC WB Ioniz Calcium 1.10 L GGT AST 42 H ALT 54 H Triglycerides Lipase 90 H Ethyl Alcohol 0.168 H Meds: Medications Diphenhydramine HCl (Benadryl) 12.5 mg IV Q4HP PRN PRN Reason: Allergic Symptoms Heparin Sodium (Porcine) (Heparin) 5,000 unit SQ Q12 [facility] Last Admin: 12/24/17 10:25 Dose: 5,000 unit Hydralazine HCl (Apresoline) 10 mg IV Q4HP PRN PRN Reason: Hypertension Potassium Chloride/Dextrose/Sod Cl (Dextrose 5%-1/2ns W/40meq Kcl) 1,000 mls @ 75 mls/hr IV .[id number] [facility] Last Admin: 12/24/17 10:25 Dose: 75 mls/hr Thiamine HCl 100 mg/ Sodium (Chloride) 51 mls @ 50 mls/hr IV DAILY [facility] Stop: 12/26/17 10:02 Last Infusion: 12/24/17 11:25 Dose: Infused Acetaminophen (Ofirmev) 1,000 mg in 100 mls @ 200 mls/hr IV Q8 [facility] Last Admin: 12/24/17 15:16 Dose: 200 mls/hr Ketorolac Tromethamine (Toradol) 30 mg IV Q6 [facility] Stop: 12/25/17 12:01 Last Admin: 12/24/17 12:00 Dose: 30 mg Lorazepam (Ativan) 0 mg IV Q4HP PRN; Protocol PRN Reason: Alcohol Withdrawal Morphine Sulfate (Morphine) 4 mg IV Q2HP PRN PRN Reason: PAIN LEVEL > 6 Last Admin: 12/24/17 14:12 Dose: 4 mg Naloxone HCl (Narcan) 0.1 mg IV Q2MIN PRN PRN Reason: Opiate Reversal Ondansetron HCl (Zofran) 4 mg IV Q6HP PRN PRN Reason: Nausea And Vomiting Pantoprazole Sodium (Protonix) 40 mg IV BIDAC [facility] Last Admin: 12/24/17 07:32 Dose: 40 mg Phenytoin Sodium (Dilantin) 100 mg IV Q8 [facility] Last Admin: 12/24/17 14:12 Dose: 100 mg Promethazine HCl (Phenergan) 12.5 mg IV Q6HP PRN PRN Reason: Nausea And Vomiting Sodium Chloride (Saline Flush) 10 ml IV Q8 [facility] Last Admin: 12/24/17 15:19 Dose: Not Given Medical - PN: A/P - Time Spent With Patient Total time spent is greater than 50% in coordination of care (as documented) at patient's floor/unit and/or counseling patient: - Narrative A/P Narrative: A: *Acute on chr pancreatitis: *Etoh intoxication /Abuse: *HTN *Sz d/o: * P: -prn morphine/tylenol/toradol -advance diet as tolerated, currently full liquid -CIWA, vitamins, prn meds -IV dilantin - -ppx: heparin/home ppi Medical - PN: Qual - VTE Deep Vein Thrombosis/Pulmonary Embolism Present on Admission: No
[2017-12-25] MEDS: DEXTROSE 5%-1/2NS W/40MEQ KCL 1,000 ML IV SCH (00:48)
[2017-12-25] MEDS: KETOROLAC 30 MG/ML VIAL IV SCH ×3 (00:48→12:05)
[2017-12-25] MEDS: ACETAMINOPHEN 1,000 MG/100 ML BOTTLE IV SCH (05:52)
[2017-12-25] MEDS: PHENYTOIN SOD 100 MG/2 ML VIAL IV SCH (05:52)
[2017-12-25] MEDS: 0.9 % SODIUM CHLORIDE 10 ML SYRINGE IV SCH ×2 (05:53→10:54)
[2017-12-25 06:53] LABS: Basophils # (Auto) 0 K/mcL (0.0-0.3); Basophils % (Auto) 0.5 % (0.0-2.0); Eosinophils # (Auto) 0.3 K/mcL (0.0-0.7); Eosinophils % (Auto) 6.1 % (0.0-7.0); Lymphocytes # (Auto) 1.9 K/mcL (1.5-4.8); Lymphocytes % (Auto) 43.4 % (15.5-49.0); Mean Cell Volume 92.3 fL (80.0-100.0); Mean Corpuscular HGB Conc 34.7 g/dL (31.0-36.0); Mean Corpuscular Hemoglobin 32.1 pg (26.0-34.0); Monocytes # (Auto) 0.2 K/mcL (0.1-0.9); Platelet Count 184 K/mcL (140-440); RBC 4.35 M/mcL (4.50-5.90); Red Cell Distribution Width 12.9 % (11.5-14.5)
--- NOTE | 2017-12-25 07:19 | Internal Med Progress Note ---
Medical - PN: Subj Patient information: Note initiated : 12/25/17 at 7:15 am Service Date, if different from initiated Date: [] Patient: Lion Johnson a 32 y/o M admitted on 12/23/17 for Nausea, Diarrhea, Abdominal Pain/Pancreatitis. Chief Complaint: [] Interval history: Mr. Johnson is a 32 year old M with h/o alcohol use, chr pancreatitis on Ct presents to the ER with complaints of nausea, vomiting and abdominal pain x 1 day The patient notes that he has not been feeling well for last few days, the pain initially started last sunday/ sunday, it was initially in his back (CT shows him having wedge fracture in that region), he thought its work related injury, the patient then took tylenol to see if this helped, he also notes he had been to a chiropractor to no avail, he then started to drink alcohol from last night, 2 large cans 12% beer. He also has been having abdominal pain from yesterday, nausea, vomiting, loose stools, he thought this was related to viral syndrome, but these symptoms continued to get worse and he eventually came to the hospital for further management. He notes he is not able to keep anything down at all, and even taking a sip of water for his seizure medications or blood pressure medication makes his symptoms worse. In the ER the patient was hemodynamically stable, he had no fever, rates his pain very severe not responding to IV pain meds, he also did not respond to IV ondansetron, Plan was to admit the patient, CT scan requested by me, [id number] acute on chr pancreatitis, liapse mildly elevated at 90, he always has elevated lipase it seems. He was last admitted in august for acute pancreatitis and was educated at length regarding abstinence from alcohol. Pt note he was sober for a month. The patient rates his pain in the ER around 8, he seems quite comfortable for his high pain ratings, which he attributes to his high pain threshold. Notes that if his pain score is 8, that would be 16 for someone else. I was informed later that the patient noted that he wanted go and hurt himself if the pain medication is not working. It seems that the ER provider is planning on having [facility] evaluate the patient before he is moved to the floor. The patient needs to be clear from etoh before [facility] can evaluate the patient and so they will be keeping the patient in the ER till [facility] has seen the patient and cleared him from suicidal watch. I will assume care once patient is on the floor/ cleared by [facility] 12/24 pt seen examined, pain still there, but stable, lipase elevated to 120, clinically pt stable no fever, no nausea and or vomiting since yesterday advance diet today, to liquid 12/25 tolerating full liquid diet since yesterday morning. - Constitutional Vitals: Vital Signs Temp Pulse Resp BP Pulse Ox 98.5 F 77 18 144/89 98 12/25/17 03:34 12/25/17 04:05 12/25/17 03:34 12/25/17 04:05 12/25/17 03:34 Period Temp Pulse Resp BP Sys/Hess Pulse Ox Last 24 Hr 97.7 F-98.5 F 55-77 16-18 122-148/81-105 91-98 Intake and Output 12/24/17 12/25/17 12/25/17 21:59 05:59 13:59 Intake Total 720 / 720 1700 / 1700 Output Total 250 / 250 2225 / 2225 Balance 470 / 470 -525 / -525 Weight 171 lb 8 oz Intake & Output: Intake & Output 12/24/17 12/25/17 12/25/17 21:59 05:59 13:59 Intake Total 720 / 720 1700 / 1700 Output Total 250 / 250 2225 / 2225 Balance 470 / 470 -525 / -525 Weight 171 lb 8 oz Intake: IV 100 / 100 1100 / 1100 Dextrose 5%-1/2Ns W/40Meq KCl 1 1000 / 1000 ,000 ml @ 75 mls/hr IV .[id number] [facility] Rx#:[id number] Oral 620 / 620 600 / 600 Output: Void Amount 250 / 250 2225 / 2225 Other: Meal Lunch Percent of Meal Consumed 100% Urine Appearance Clear Urine Color Bright Yellow Medical - PN: Obj Da - Labs CBC & Chem 7: 12/25/17 05:02 12/25/17 05:02 Labs: Abnormal Lab Results 12/25/17 12/24/17 12/24/17 05:02 04:03 04:02 WBC 4.3 L RBC 4.35 L Hct 40.1 L MPV Gran % Lymph % (Auto) Gran # Glucose POC Glucose Uric Acid 9.0 H POC WB Ioniz Calcium GGT 339 H AST ALT Triglycerides 447 H Lipase 127 H Ethyl Alcohol 12/23/17 12/23/17 12/23/17 17:30 11:48 11:48 WBC RBC Hct MPV Gran % Lymph % (Auto) Gran # Glucose 106 H POC Glucose 106 H Uric Acid POC WB Ioniz Calcium 1.10 L GGT AST 42 H ALT 54 H Triglycerides Lipase 90 H Ethyl Alcohol 0.079 H 0.168 H 12/23/17 11:48 WBC RBC Hct MPV 7.3 L Gran % 32.6 L Lymph % (Auto) 59.6 H Gran # 1.5 L Glucose POC Glucose Uric Acid POC WB Ioniz Calcium GGT AST ALT Triglycerides Lipase Ethyl Alcohol Meds: Medications Diphenhydramine HCl (Benadryl) 12.5 mg IV Q4HP PRN PRN Reason: Allergic Symptoms Heparin Sodium (Porcine) (Heparin) 5,000 unit SQ Q12 [facility] Last Admin: 12/24/17 22:39 Dose: 5,000 unit Hydralazine HCl (Apresoline) 10 mg IV Q4HP PRN PRN Reason: Hypertension Last Admin: 12/25/17 03:39 Dose: 10 mg Potassium Chloride/Dextrose/Sod Cl (Dextrose 5%-1/2ns W/40meq Kcl) 1,000 mls @ 75 mls/hr IV .[id number] [facility] Last Admin: 12/25/17 00:48 Dose: 75 mls/hr Thiamine HCl 100 mg/ Sodium (Chloride) 51 mls @ 50 mls/hr IV DAILY [facility] Stop: 12/26/17 10:02 Last Infusion: 12/24/17 11:25 Dose: Infused Acetaminophen (Ofirmev) 1,000 mg in 100 mls @ 200 mls/hr IV Q8 [facility] Last Admin: 12/25/17 05:52 Dose: 200 mls/hr Ketorolac Tromethamine (Toradol) 30 mg IV Q6 [facility] Stop: 12/25/17 12:01 Last Admin: 12/25/17 05:52 Dose: 30 mg Lorazepam (Ativan) 0 mg IV Q4HP PRN; Protocol PRN Reason: Alcohol Withdrawal Morphine Sulfate (Morphine) 4 mg IV Q2HP PRN PRN Reason: PAIN LEVEL > 6 Last Admin: 12/25/17 07:01 Dose: 4 mg Naloxone HCl (Narcan) 0.1 mg IV Q2MIN PRN PRN Reason: Opiate Reversal Ondansetron HCl (Zofran) 4 mg IV Q6HP PRN PRN Reason: Nausea And Vomiting Pantoprazole Sodium (Protonix) 40 mg IV BIDAC [facility] Last Admin: 12/24/17 17:36 Dose: 40 mg Phenytoin Sodium (Dilantin) 100 mg IV Q8 [facility] Last Admin: 12/25/17 05:52 Dose: 100 mg Promethazine HCl (Phenergan) 12.5 mg IV Q6HP PRN PRN Reason: Nausea And Vomiting Sodium Chloride (Saline Flush) 10 ml IV Q8 [facility] Last Admin: 12/25/17 05:53 Dose: Not Given Medical - PN: A/P - Time Spent With Patient Total time spent is greater than 50% in coordination of care (as documented) at patient's floor/unit and/or counseling patient: - Narrative A/P Narrative: A: *Acute on chr pancreatitis: *Etoh intoxication /Abuse: *HTN *Sz d/o: * P: -prn morphine/tylenol/toradol -advance diet as tolerated, currently full liquid -CIWA, vitamins, prn meds -IV dilantin - -ppx: heparin/home ppi Medical - PN: Qual - VTE Deep Vein Thrombosis/Pulmonary Embolism Present on Admission: No
[2017-12-25 07:28] LABS: ALT/SGPT 34 U/l (0-40); Albumin 3.8 gm/dL (3.2-5.2); Albumin/Globulin Ratio 1.6 (1.0-2.3); Alkaline Phosphatase 74 U/L (39-117); Bilirubin,Direct < 0.2 mg/dL (0.0-0.3); Blood Urea Nitrogen 9 mg/dl (6-20); Gamma Glutamyl Transpeptidase 410 U/L (8-61); Uric Acid 8.1 mg/dL (2.5-8.0)
[2017-12-25] MEDS: PANTOPRAZOLE 40 MG VIAL IV SCH (09:06)
[2017-12-25] MEDS: THIAMINE 100 MG in 0.9 % SODIUM CHLORIDE 50 ML IV SCH (09:06)
[2017-12-25] MEDS: HEPARIN 5,000 UNIT/ML VIAL SQ SCH (10:09)
--- NOTE | 2017-12-25 10:26 | Discharge Summary ---
DATE OF ADMISSION: 12/23/2017 DATE OF DISCHARGE: DISCHARGE DIAGNOSES: 1. Acute on chronic pancreatitis. 2. Alcoholic intoxication and alcohol abuse. 3. Hypertension. 4. History of seizure disorder. HISTORY OF PRESENT ILLNESS: This is a 32-year-old male who presented with nausea, vomiting, diarrhea, and abdominal pain. He presented to the ER and findings in the ER were consistent with acute on chronic pancreatitis. He was also found to have alcohol intoxication and abuse and thus the patient was admitted. HOSPITAL COURSE: The patient was started on aggressive IV fluid hydration, pain control, CIWA protocol. He responded well over the next couple days. Pain is still there, but stable. Lipase is fluctuating, improved today. No fevers or nausea. Diet was advanced to liquid, tolerating full liquid diet. The patient is doing well this morning and is now stable for discharge. DISPOSITION: The patient was discharged home. DISCHARGE CONDITION: Stable. DISCHARGE DIET: Soft. DISCHARGE ACTIVITY: As tolerated. DISCHARGE MEDICATIONS: Continue home medication list, see EMR. FOLLOWUP: The patient will follow up with primary care provider in 3 to 7 days. Time spent on discharge 35 minutes. LISA:joan Job ID: [id number] Doc ID: [id number] Roslaio Trujillo DO
== END 2017-12-25 14:15 | disposition home or self-care (01) ==
LOC: MEDSUR 11:34 → ED 11:34 → MEDSUR 19:59
PROVIDERS: ADMIT Internal Medicine; ATTEND Internal Medicine